=== PATIENT | male | born 1935 | race Caucasian/White ===

== ENCOUNTER 2017-03-07 09:40 | Outpatient (CLI) | payer MEDICARE, BC ==
--- NOTE | 2017-03-07 10:39 | RAD ---
TWO VIEWS LUMBAR SPINE: Date: 03-07-17 History: Low back pain. FINDINGS: T12 ribs appear hypoplastic. There are five non-rib bearing lumbar type vertebral bodies. There are post-surgical changes of the lumbar spine related to fusion with interbody fusion material at the L3 -4 and L4-5 levels. However, since prior study on 10-06-16, there have been interval post-surgical ch anges related to posterior fusion with bipedicular screws and posterior rods transfixing the L4-5 le wei. Laminectomy defect is seen posteriorly at this level. Vertebral body heights are within normal limits. There is no fracture or subluxation. Minimal osteophytes are seen involving the upper lumbar spine. Vascular calcifications are seen in the abdominal and iliac arteries. There is right convex rotoscoliosis throughout the lumbar spine. Surgical clips overlie the right upper quadrant. IMPRESSION: 1. Interval post-surgical changes compared to prior study related to posterior fusion at the L4-5 le wei with bipedicular screws and posterior rods. 2. Fusion of the L3-4 and L4-5 as well as L5-S1 levels with interbody fusion material present. 3. Mild degenerative changes in the upper lumbar spine. 4. No acute fracture. 5. Vascular calcifications. POS: [facility]
== END 2017-03-07 09:41 | disposition home or self-care (01) ==
LOC: TBSIIMAG 09:40
PROVIDERS: ATTEND Neurological Surgery
DX: M54.5 Low back pain (principal); M47.896 Other spondylosis, lumbar region; M43.26 Fusion of spine, lumbar region
CPT/HCPCS: 72100

== ENCOUNTER 2017-05-16 15:39 | Outpatient (CLI) | payer MEDICARE, OTHER ==
--- NOTE | 2017-05-16 15:54 | RAD ---
CHEST TWO VIEWS: History: Chest pain. FINDINGS: The cardiac silhouette and pulmonary vasculature are unremarkable. Mediastinum is midline with a dual lead left subclavian cardiac electronic device. There is no confluent airspace consolidation, pneumo thorax or pleural fluid evident. IMPRESSION: Chronic type findings are stable. No active cardiopulmonary abnormalities are demonstrated. POS: [facility]
== END 2017-05-16 15:40 | disposition home or self-care (01) ==
LOC: SCSRAD 15:39
PROVIDERS: ATTEND Internal Medicine
DX: R07.9 Chest pain, unspecified (principal)
CPT/HCPCS: 71020

== ENCOUNTER 2017-06-22 14:08 | Outpatient (CLI) | payer MEDICARE, BC ==
--- NOTE | 2017-06-22 15:45 | CT ---
CT OF THE LUMBAR SPINE: Date: 06/22/17 COMPARISON: 10/06/16. HISTORY: Low back pain, trauma, prior surgery. TECHNIQUE: Serial axial CT imaging is obtained at 3 mm intervals from lower thoracic spine through lower sacrum without contrast. Coronal and sagittal reformatted imaging obtained. FINDINGS: Evaluation of the nonosseous structures is limited on noncontrast enhanced imaging. Cholecystectomy clips are noted. There is atherosclerotic calcification of the abdominal aorta and it s branches, not optimally assessed on this exam. Incompletely imaged sigmoid diverticulosis noted. There is no significant anterolisthesis or retrolisthesis noted. Intervertebral disc devices are noted at L3-4, L4-5, and L5-S1, as seen on the prior exam. New bilate ral L4 and L5 pedicle screws are present with vertically oriented interlocking rods. No evidence for hardware failure is noted. T12-L1: Evaluation for central canal and neural foraminal stenosis is limited on routine CT. T12-L1: No osseous cause of significant central canal or neural foraminal stenosis. L1-2: Mild bilateral facet hypertrophy. Mild disc bulge suspected. Probable mild central canal stenosis. No osseous cause of significant central canal or neural foraminal stenosis. L2-3: Moderate bilateral facet hypertrophy. Mild disc bulge suspected. At least mild to moderate bilateral neural foraminal stenosis and at least mild central canal stenosis suspected. L3-4: Bilateral facet hypertrophy present with no osseous cause of significant central canal or neural fora manny stenosis. L4-5: There is bilateral facet hypertrophy with probably mild bilateral neural foraminal stenosis. There is no osseous cause of significant central canal stenosis. L5-S1: Bilateral facet hypertrophy with probable mild bilateral neural foraminal stenosis. Laminectomy saldaña es are present at L4 and L5. No acute fracture or dislocation. No worrisome lytic or blastic bone les ion. IMPRESSION: Postoperative and degenerative changes noted within the lumbar spine as detailed above. There is no e vidence for hardware failure, fracture, or dislocation. If further assessment for underlying central canal and/or neural foraminal stenosis is clinically warranted, lumbar spine CT myelogram advised. POS: [facility]
== END 2017-06-22 14:09 | disposition home or self-care (01) ==
LOC: TBSIIMAG 14:08
PROVIDERS: ATTEND Neurological Surgery
DX: M54.5 Low back pain (principal); Z98.1 Arthrodesis status; M47.896 Other spondylosis, lumbar region
CPT/HCPCS: 72131

== ENCOUNTER 2018-12-06 15:00 | Outpatient (CLI) | payer MEDICARE, BC ==
--- NOTE | 2018-12-06 16:25 | CT ---
CT LEFT SHOULDER WITHOUT CONTRAST: 12/06/18 HISTORY: Acute pain left shoulder. COMPARISON: None. FINDINGS: Rotator cuff evaluation is limited without intra-articular contrast. No biceps tendon is appreciated. Likely ruptured. LABRUM: Limited without intra-articular contrast although the superior labral tear is highly suspected. ROTATOR CUFF: Full thickness, full width supraspinatus and infraspinatus tendon tears. Also high grade likely full thickness tear of the subscapularis. MUSCLES: Greater than 50% atrophy of the supraspinatus, infraspinatus and subscapularis muscles. BONES: No fracture or malalignment. IMPRESSION: 1. Likely full thickness, full width supraspinatus and infraspinatus and subscapularis tendon te ars with greater than 50% muscle atrophy. 2. Rupture of the intra-articular and extra-articular biceps tendon is suspected. 3. Likely high grade tearing of the superior labrum. 4. Abnormal articulation with the humeral head with the undersurface of the acromion. POS: [facility]
== END 2018-12-06 15:01 | disposition home or self-care (01) ==
LOC: SCSCT 15:00
PROVIDERS: ATTEND Family Medicine
DX: M25.512 Pain in left shoulder (principal); M75.102 Unspecified rotator cuff tear or rupture of left shoulder, not specified as traumatic; S46.812A Strain of other muscles, fascia and tendons at shoulder and upper arm level, left arm, initial encounter; M89.9 Disorder of bone, unspecified

== ENCOUNTER 2018-12-26 11:15 | Inpatient (IN) | payer MEDICARE, BC ==
[2018-12-27] MEDS ORDERED: ceFAZolin Sodium (SDC) 2 GM/100 ML BAG ONE (06:22)
[2018-12-27] MEDS ORDERED: Midazolam HCl 5 mg/5 ml Vial ONE (06:31)
[2018-12-27] MEDS ORDERED: Fentanyl 250 MCG/5 ML VIAL ONE (06:31)
[2018-12-27] MEDS ORDERED: Phenylephrine HCL 10 MG/ML VIAL ONE (06:31)
[2018-12-27] MEDS ORDERED: Albumin 5% 500 ML ONE (06:33)
[2018-12-27] MEDS ORDERED: Heparin 10,000 UNITS/1 ML VIAL 30,000 UNITS in Sodium Chloride 0.9% 1,000 ML FS SCH (07:00)
[2018-12-27] MEDS ORDERED: Insulin Regular 300 UNITS/3 ML VIAL ONE (07:11)
[2018-12-27] MEDS ORDERED: Dexamethasone 4 mg/ml Vial ONE (08:24)
[2018-12-27] MEDS ORDERED: Bupivacaine HCl 0.5%/Epinephrine 1:200,000/PF 30 ml Vial ONE (08:24)
[2018-12-27] MEDS ORDERED: Amiodarone 150 MG/3 ML VIAL ONE (09:47)
[2018-12-27] MEDS ORDERED: Mag-Al 1200 mg/1200 mg/30 ML UDCUP PO PRN (11:07)
[2018-12-27] MEDS ORDERED: Promethazine HCl 25 MG/ML VIAL IM PRN (11:07)
[2018-12-27] MEDS ORDERED: Bisacodyl 10 MG SUPP PR PRN (11:07)
[2018-12-27] MEDS ORDERED: hydrALAZINE 20 MG/ML VIAL SLOW IVP PRN (11:07)
[2018-12-27] MEDS ORDERED: Nitroglycerin 50 MG/250 ML BOT 250 ML IVPB PRN (11:07)
[2018-12-27] MEDS ORDERED: Magnesium 2 GM/50 ML 2 GM in Premix Bag 1 BAG IVPB SCH (11:07)
[2018-12-27] MEDS ORDERED: Bisacodyl 5 MG TAB PO PRN (11:07)
[2018-12-27] MEDS ORDERED: Hetastarch 6% 500 ML 500 ML IVPB PRN (11:07)
[2018-12-27] MEDS ORDERED: Fentanyl 100 MCG/2 ML VIAL SLOW IVP PRN (11:07)
[2018-12-27] MEDS ORDERED: Guaifenesin DM 100-10/5 ML UDCUP PO PRN (11:07)
[2018-12-27] MEDS ORDERED: DOPamine 400 MG/D5W 250 ML 250 ML IVPB PRN (11:07)
[2018-12-27] MEDS ORDERED: Amiodarone 450 MG in Dextrose 5% in Water 250 ML IVPB SCH (11:07)
[2018-12-27] MEDS ORDERED: Dextrose 50% Abboject 50 ML SYRINGE SLOW IVP PRN (11:13)
[2018-12-27] MEDS ORDERED: D5 1/2 NS w/20 mEq KCL 1,000 ML ONE (11:13)
[2018-12-27] MEDS ORDERED: Dextrose 5% in Water 1,000 ML IV PRN (11:13)
[2018-12-27 11:16] LABS: #Basophils 0.2 thou/uL (0.0-0.2); #Eosinphils 0.1 thou/uL (0.0-0.7); #Lymphocytes 1.6 thou/uL (1.20-3.40); #Monocytes 0.8 thou/uL (0.11-0.59); #Neutrophils 9.7 thou/uL (1.40-6.50); %Basophils 1.3 % (0.0-1.0); %Eosinophils 0.6 % (0.0-10.0); %Lymphocytes 12.7 % (21.0-51.0); %Monocytes 6.1 % (0.0-10.0); %Neutrophils 79.3 % (42.0-75.0); Hemoglobin 10.8 g/dL (14.0-18.0); Mean Corpuscular HGB CONC 33.2 g/dL (32.0-36.0); Mean Corpuscular Hemoglobin 32.4 pg (27.0-31.0); Mean Corpuscular Volume 97.6 fL (78.0-98.0); Mean Platelet Volume 10.5 fL (7.4-10.4); Platelet Count 146 thou/uL (130-400); Red Blood Cell (RBC) Count 3.33 mill/uL (4.70-6.10); White Blood Cell (WBC) Count 12.2 thou/uL (4.8-10.8)
[2018-12-27 11:18] LABS: Base Excess (BEa) -6.6 mEq/L (-2.0 to +3.0); CO2 Tension 32.6 mmHg (35.0-45.0); Calcium, Ionized 1.06 mmol/L (1.12-1.30); Carboxyhemoglobin (COHb) 0.5 gm% (0.0-3.0); Hemoglobin (Hb) 11.3 g/dL (14.0-18.0); O2 Tension (PaO2) 97.1 mmHg (> 60.0); pH, Arterial 7.36 (7.35-7.45)
[2018-12-27] MEDS ORDERED: Norepinephrine 4 MG/4 ML VIAL ONE (11:18)
[2018-12-27 11:21] LABS: PTT 31.6 SEC (22.9-36.1)
--- NOTE | 2018-12-27 11:21 | RAD ---
XR Chest 1 View Portable History: Post open heart surgery Comparison: Radiograph prior day Findings: Right subclavian central venous catheter tip sits at the right atrium. The pacer is similar . Endotracheal tube tip rests just below the clavicles. Small left effusion. Left thoracostomy drain is present. No pneumothorax. Multiple midline sternotomy wires. Impression: Expected postoperative findings without complication.
[2018-12-27 11:22] LABS: INR-International Normal Ratio 1.3; Prothrombin Time 15.7 SEC (12.0-14.7)
[2018-12-27 11:25] LABS: Puncture Site ALINE
--- NOTE | 2018-12-27 11:25 | OP ---
DATE OF PROCEDURE: 12/27/2018 PREOPERATIVE DIAGNOSES: Coronary artery disease/hypertension/dyslipidemia. POSTOPERATIVE DIAGNOSIS: Coronary artery disease/hypertension/dyslipidemia. PROCEDURE PERFORMED: 1. Off pump coronary artery bypass grafting x2-left internal mammary artery to 1.0 mm left anterior descending at the apex. Note, the left anterior descending artery was intramyocardial all the way to the apex where it became visible and was small. The mammary was a good quality mammary with a small distal target. 2. Reverse saphenous vein to diagonal-good conduit and target [employer] SURGEON: Raymundo Monte MD. ANESTHESIA: General endotracheal-Dr. Hammad Sigala. DRAINS: 24-Estonian chest tube x2. DRIPS: None. TRANSFUSIONS: None. DESCRIPTION OF PROCEDURE: After operative consent was obtained, the patient was brought to the operating room, placed in supine position on the operating room table. Appropriate central line was placed and general endotracheal anesthesia was induced. Chest and legs were prepped and draped in usual sterile fashion. Greater saphenous vein was harvested through two skip incisions from the left lower thigh. Wounds were irrigated and closed in layers. Median sternotomy was performed. Left internal mammary artery was harvested as a pedicle graft. The patient was systemically heparinized. Distal pedicle was divided and infused with papaverine. Thymic fat and pericardium were divided with electrocautery. Pericardial stay sutures were placed. Heart was positioned for diagonal bypass with Octopus retractor. Proximal control was obtained with vessel loop. Saphenous vein was anastomosed to the diagonal in an end-to-side fashion with a running 7-0 Prolene suture. Anastomosis was tested and was hemostatic. The graft backfilled nicely. Mammary artery was brought through pericardium. The heart was then positioned for the LAD bypass at the apex. Mammary artery was anastomosed at the LAD with running 7-0 Prolene suture. On release of the the mammary clamp, there wsa good hooding of the anastomosis, and good distal flow. Pedicle was secured with interrupted 6-0 Prolene suture. Heart was dropped back in pericardial well. Blood pressure was dropped down into the 80s. The aorta was palpated and there was anterior plaque, where we would normally have done his proximal anastomosis. We moved more distally towards the arch for the proximal anastomosis and found a soft spot. Partial occluding clamp was placed , and saphenous vein anastomosed to a punch site in the aorta. On opening the aorta, there was significant soft and hard plaque within the aorta, which was irrigated and suctioned clear prior to the anastomosis. On release of the proximal clamp, there was good flow through the graft. Both grafts were interrogated with Doppler, which showed good flow. Protamine was administered. 24-Estonian chest tubes were placed in the mediastinum x2. After adequate hemostasis had been obtained, the sternum was closed with #7 wire. Sternum was treated with vancomycin paste and platelet rich plasma and wires twisted. Wound was irrigated with platelet rich plasma and closed in multiple layers. Needle, sponge, and instrument counts were all reported as correct at the end of the procedure. The patient tolerated the procedure well, was transferred to the intensive care unit in stable condition. Job ID: [id number] [facility]
[2018-12-27] MEDS ORDERED: Norepinephrine 8 MG in Dextrose 5% in Water 242 ML IVPB SCH (11:30)
[2018-12-27 11:33] LABS: Anion Gap 13 mmol/L (10-20); BUN (Urea Nitrogen) 19 mg/dL (8.4-25.7); Calc. Creatinine Clearance 50 mL/min (70-130); Calcium 7.9 mg/dL (7.8-10.44); Carbon Dioxide 19 mmol/L (23-31); Chloride 108 mmol/L (98-107); Estimated GFR-MDRD 67; Glucose 162 mg/dL (83-110); Potassium 4.1 mmol/L (3.5-5.1); Sodium 136 mmol/L (136-145)
[2018-12-27] MEDS ORDERED: Morphine 2 MG/ML SYRINGE SLOW IVP PRN (11:38)
[2018-12-27] MEDS: Ketorolac Tromethamine 30 MG/ML VIAL IVP SCH ×2 (11:42→18:04)
[2018-12-27] MEDS: D5 1/2 NS w/20 mEq KCL 1,000 ML IV SCH (11:44)
[2018-12-27] MEDS: Ondansetron PF 4 MG/2 ML Vial IVP PRN ×2 (11:57→20:23)
[2018-12-27] MEDS ORDERED: Norepinephrine 8 MG, Admixture Fee 1 EACH in Dextrose 5% in Water 242 ML IVPB SCH (12:00)
[2018-12-27] MEDS: HumaLOG 300 UNITS/3 ML VIAL SC PRN ×2 (12:14→22:55)
[2018-12-27] MEDS: CEFAZOLIN 2 GM, Admixture Fee 1 EACH in Sodium Chloride 0.9% 100 ML IVPB SCH ×2 (14:10→22:55)
[2018-12-27 14:50] LABS: Actual Bicarbonate (HCO3a) 13.3 mEq/L (22-28); Base Excess (BEa) -8.5 mEq/L (-2.0 to +3.0); Calcium, Ionized 1.04 mmol/L (1.12-1.30); Carboxyhemoglobin (COHb) 0.3 gm% (0.0-3.0); pH, Arterial 7.46 (7.35-7.45)
[2018-12-27] MEDS ORDERED: CEFAZOLIN 2 GM in Premix Bag 1 BAG IVPB SCH (15:00)
[2018-12-27] MEDS ORDERED: Protamine Sulfate 250 MG/25 ML VIAL ONE (15:40)
[2018-12-27] MEDS ORDERED: PHENYLEPHRINE-NS 100 MCG/ML 10 ML SYRINGE ONE (15:40)
[2018-12-27] MEDS ORDERED: Rocuronium Bromide 10 MG/ML (10ML VIAL) ONE (15:40)
[2018-12-27] MEDS ORDERED: Thrombin 5000 UNITS/5 ML VIAL ONE (15:40)
[2018-12-27] MEDS ORDERED: PROPOFOL 200 MG/20 ML VIAL ONE (15:40)
[2018-12-27] MEDS ORDERED: Heparin 5,000 UNITS/ML VIAL ONE (15:40)
[2018-12-27] MEDS ORDERED: Nitroglycerin 50 MG/250 ML BOT ONE (15:40)
[2018-12-27] MEDS ORDERED: Calcium Chloride 1 GM/10 ML Abboject SYRINGE ONE (15:40)
[2018-12-27] MEDS ORDERED: Papaverine 60 MG/2 ML VIAL ONE (15:40)
[2018-12-27] MEDS ORDERED: Aminocaproic Acid 5 GM/20 ML VIAL ONE (15:40)
[2018-12-27] MEDS ORDERED: Hydrocortisone Sod Succ/PF 100 mg/2 ml Vial ONE (15:40)
[2018-12-27 16:25] LABS: Hemoglobin 10.8 g/dL (14.0-18.0)
[2018-12-27] MEDS: Fentanyl 100 MCG/2 ML VIAL SLOW IVP PRN (16:41)
[2018-12-27 16:55] LABS: Potassium 4.7 mmol/L (3.5-5.1)
[2018-12-27 16:59] LABS: CO2 Tension 19.2 mmHg (35.0-45.0)
[2018-12-27 17:00] LABS: Puncture Site ALINE
[2018-12-27] MEDS: HYDROcodone/Acetaminophen 5/325 mg Tablet PO PRN (20:23)
[2018-12-27] MEDS: Famotidine/PF 20 mg/2ml Vial SLOW IVP SCH (20:23)
[2018-12-27] MEDS: Norepinephrine 8 MG, Admixture Fee 1 EACH in Dextrose 5% in Water 242 ML IVPB SCH (22:18)
[2018-12-28] MEDS: Ketorolac Tromethamine 30 MG/ML VIAL IVP SCH ×5 (00:55→17:54)
[2018-12-28] MEDS: Ondansetron PF 4 MG/2 ML Vial IVP PRN ×3 (02:14→21:44)
[2018-12-28] MEDS: HumaLOG 300 UNITS/3 ML VIAL SC PRN (05:01)
[2018-12-28 05:45] LABS: Anion Gap 12 mmol/L (10-20); BUN (Urea Nitrogen) 27 mg/dL (8.4-25.7); Calc. Creatinine Clearance 37 mL/min (70-130); Carbon Dioxide 18 mmol/L (23-31); Chloride 105 mmol/L (98-107); Estimated GFR-MDRD 44; Glucose 160 mg/dL (83-110); Potassium 5.3 mmol/L (3.5-5.1); Sodium 130 mmol/L (136-145)
[2018-12-28 05:50] LABS: Band 6 % (5-11); Hemoglobin 10.8 g/dL (14.0-18.0); Hypochromia SLIGHT = 6-15 cells (100X) (0-5/hpf); Lymphocytes 9 % (21-51); MDiff Complete? YES; Mean Corpuscular HGB CONC 32.5 g/dL (32.0-36.0); Mean Corpuscular Hemoglobin 32.7 pg (27.0-31.0); Mean Platelet Volume 11.2 fL (7.4-10.4); Monocytes 4 % (0-10); Neutrophil 81 % (42-75); Platelet Count 161 thou/uL (130-400); Platelet Morphology Comment Appears Adequate; RBC Distribution Width 12.3 % (11.5-14.5)
[2018-12-28] MEDS ORDERED: PROVENTIL INHALER 6.7 G (200 INHALATIONS) INH PRN (06:30)
[2018-12-28] MEDS: CEFAZOLIN 2 GM, Admixture Fee 1 EACH in Sodium Chloride 0.9% 100 ML IVPB SCH (07:36)
--- NOTE | 2018-12-28 08:40 | RAD ---
CHEST 1 VIEW: Date: 12/28/18 HISTORY: Heart surgery. Follow-up. COMPARISON: 12/27/18. FINDINGS: Cardiac silhouette is magnified and enlarged. Pulmonary vasculature unremarkable. Mediastinum is midl ine with postoperative changes. Endotracheal catheter no longer visible. Other lines and drains appea r unchanged in position. No evidence of pneumothorax. Gaseous distention of the stomach partially vis ualized. IMPRESSION: 1. Interval extubation. 2. Mild gaseous distention of the stomach. 3. Otherwise stable postoperative appearance of the chest. POS: [facility]
[2018-12-28] MEDS: Aspirin Chewable 81 MG TAB PO SCH (09:00)
[2018-12-28] MEDS: Famotidine/PF 20 mg/2ml Vial SLOW IVP SCH (09:00)
[2018-12-28] MEDS: Lactinex Tablet PO SCH (09:00)
[2018-12-28] MEDS: predniSONE 5 MG TAB PO SCH (09:00)
[2018-12-28] MEDS: Magnesium 2 GM/50 ML 2 GM in Premix Bag 1 BAG IVPB SCH (09:09)
[2018-12-28] MEDS: Flecainide 50 MG TAB PO SCH ×3 (09:28→21:44)
[2018-12-28] MEDS: D5 1/2 NS w/20 mEq KCL 1,000 ML IV SCH (11:35)
[2018-12-28] MEDS ORDERED: Prevnar 13-Val Conj/PF 0.5 ML SYRINGE IM ONE (12:30)
[2018-12-28] MEDS: Fentanyl 100 MCG/2 ML VIAL SLOW IVP PRN ×2 (12:54→19:44)
[2018-12-28] MEDS: Norepinephrine 8 MG, Admixture Fee 1 EACH in Dextrose 5% in Water 242 ML IVPB SCH (15:38)
[2018-12-28] MEDS: Atorvastatin Calcium 20 MG TAB PO SCH (21:44)
[2018-12-29] MEDS: Ketorolac Tromethamine 30 MG/ML VIAL IVP SCH ×3 (00:15→12:38)
[2018-12-29 04:25] LABS: #Eosinphils 0.1 thou/uL (0.0-0.7); #Lymphocytes 1.9 thou/uL (1.20-3.40); #Monocytes 2.6 thou/uL (0.11-0.59); #Neutrophils 13.3 thou/uL (1.40-6.50); %Eosinophils 0.4 % (0.0-10.0); %Lymphocytes 10.8 % (21.0-51.0); %Monocytes 14.8 % (0.0-10.0); %Neutrophils 73.9 % (42.0-75.0); Hemoglobin 11.2 g/dL (14.0-18.0); Mean Corpuscular Hemoglobin 33.4 pg (27.0-31.0); Mean Platelet Volume 12.1 fL (7.4-10.4); Platelet Count 146 thou/uL (130-400); RBC Distribution Width 12.5 % (11.5-14.5); Red Blood Cell (RBC) Count 3.34 mill/uL (4.70-6.10); White Blood Cell (WBC) Count 17.9 thou/uL (4.8-10.8)
[2018-12-29] MEDS: Ondansetron PF 4 MG/2 ML Vial IVP PRN (04:35)
[2018-12-29] MEDS: HYDROcodone/Acetaminophen 5/325 mg Tablet PO PRN ×2 (04:35→20:46)
[2018-12-29 05:26] LABS: Chloride 105 mmol/L (98-107); Potassium 5.7 mmol/L (3.5-5.1)
[2018-12-29 05:27] LABS: Calcium 7.7 mg/dL (7.8-10.44); Glucose 118 mg/dL (83-110)
[2018-12-29 05:29] LABS: Anion Gap 16 mmol/L (10-20); Carbon Dioxide 14 mmol/L (23-31)
[2018-12-29 05:31] LABS: BUN (Urea Nitrogen) 42 mg/dL (8.4-25.7); Calc. Creatinine Clearance 22 mL/min (70-130); Estimated GFR-MDRD 24
[2018-12-29 05:38] LABS: Sodium 129 mmol/L (136-145)
--- NOTE | 2018-12-29 07:57 | RAD ---
EXAM: Single view of the chest HISTORY: Status post open heart surgery COMPARISON: 12/28/2018 FINDINGS: Single view of the chest shows an enlarged but stable cardiomediastinal silhouette. The pa tient is status post sternotomy. The pacemaker and central venous catheter are unchanged in position. The left chest tube and mediastinal drain are stable. No pneumothorax is seen. There is a v eil like opacity in the right thorax which likely represents a small layering pleural effusion. IMPRESSION: Small right pleural effusion.
[2018-12-29] MEDS: Magnesium 2 GM/50 ML 2 GM in Premix Bag 1 BAG IVPB SCH (10:06)
[2018-12-29] MEDS: Lactinex Tablet PO SCH (10:07)
[2018-12-29] MEDS: Aspirin Chewable 81 MG TAB PO SCH (10:07)
[2018-12-29] MEDS: predniSONE 5 MG TAB PO SCH (10:07)
[2018-12-29] MEDS: Famotidine/PF 20 mg/2ml Vial SLOW IVP SCH (10:07)
[2018-12-29] MEDS: Flecainide 50 MG TAB PO SCH ×2 (10:11→20:40)
[2018-12-29] MEDS: D5 1/2 NS w/20 mEq KCL 1,000 ML IV SCH (11:15)
[2018-12-29] MEDS: Sodium Chloride 0.9% 1,000 ML IV SCH ×2 (14:00→22:05)
--- NOTE | 2018-12-29 15:18 | PDOC.CTH ---
Cardiology Progress Note - Subjective Remains on low dose levophed. Chest tubes still in place. Only complaint is chest soreness. - Objective Vital Signs Temp Pulse Ox 12/29/18 12:00 97 F L 12/29/18 08:00 97.9 F 92 L 12/29/18 05:00 98.1 F 12/29/18 04:00 97.5 F L Admit Weight 157 lb 13.616 oz Weight 160 lb 0.889 oz 12/28/18 12/29/18 12/30/18 06:59 06:59 06:59 Intake Total 2790 2178.8 300 Output Total 1210 760 260 Balance 1580 1418.8 40 - Physical Examination General/Neuro: alert & oriented x3 Neck: no JVD present Lungs: unlabored respirations Heart: RRR Abdomen: NT/ND Extremities: + edema B (1+) - Telemetry Telemetry Rhythm: NSR - Labs Result Diagrams: 12/29/18 03:33 12/29/18 03:33 - Assessment/Plan 1. Multivessel CAD. 2. S/P CABG x 2, off pump CULVER to distal LAD and SVg to Diagonal. 3. LAD intramyocardial until the apex. PLAN: - Continue to try to wean pressors. - ASA/Statin for life. - BB and ACEI/ARB once BP allows.
[2018-12-29 16:39] LABS: Anion Gap 15 mmol/L (10-20); BUN (Urea Nitrogen) 53 mg/dL (8.4-25.7); Calc. Creatinine Clearance 18 mL/min (70-130); Calcium 7.4 mg/dL (7.8-10.44); Carbon Dioxide 16 mmol/L (23-31); Chloride 103 mmol/L (98-107); Estimated GFR-MDRD 20; Glucose 131 mg/dL (83-110); Potassium 5.6 mmol/L (3.5-5.1); Sodium 128 mmol/L (136-145)
[2018-12-29] MEDS: Atorvastatin Calcium 20 MG TAB PO SCH (20:40)
[2018-12-30] MEDS: HYDROcodone/Acetaminophen 5/325 mg Tablet PO PRN ×2 (01:40→07:48)
[2018-12-30] MEDS: Sodium Chloride 0.9% 1,000 ML IV SCH ×3 (05:36→23:25)
[2018-12-30] MEDS: Norepinephrine 8 MG, Admixture Fee 1 EACH in Dextrose 5% in Water 242 ML IVPB SCH (05:51)
[2018-12-30 06:11] LABS: Band 16 % (5-11); Crenated RBC SLIGHT = 1-5 cells (100X) (None Seen); Elliptocytes SLIGHT = 2-5 cells (100X) (0-1/hpf); Hemoglobin 10.7 g/dL (14.0-18.0); Hypochromia SLIGHT = 6-15 cells (100X) (0-5/hpf); Lymphocytes 27 % (21-51); MDiff Complete? YES; Mean Corpuscular Hemoglobin 32.4 pg (27.0-31.0); Mean Platelet Volume 12.3 fL (7.4-10.4); Monocytes 4 % (0-10); Neutrophil 53 % (42-75); Platelet Count 120 thou/uL (130-400); Platelet Morphology Comment Appears Decreased; Polychromasia SLIGHT = 2-3 cells (100X) (0-2/hpf); RBC Distribution Width 12.5 % (11.5-14.5); White Blood Cell (WBC) Count 7.3 thou/uL (4.8-10.8)
[2018-12-30 06:16] LABS: Anion Gap 13 mmol/L (10-20); BUN (Urea Nitrogen) 52 mg/dL (8.4-25.7); Calc. Creatinine Clearance 27 mL/min (70-130); Calcium 7.3 mg/dL (7.8-10.44); Carbon Dioxide 16 mmol/L (23-31); Chloride 104 mmol/L (98-107); Estimated GFR-MDRD 29; Glucose 125 mg/dL (83-110); Sodium 128 mmol/L (136-145)
[2018-12-30] MEDS ORDERED: Furosemide 40 MG/4 ML VIAL SLOW IVP SCH (08:30)
--- NOTE | 2018-12-30 08:50 | RAD ---
PORTABLE AP CHEST XRAY: HISTORY: Post open heart surgery. COMPARISON: 12/29/2018. FINDINGS: Dual-lead left subclavian cardiac pacemaking device and right subclavian central venous catheter pb in in place and unchanged in position. Median sternotomy wires are again seen. Cardiac silhouette remains enlarged. There is an increased in right pleural effusion compared to wilfred or study. The left-sided thoracostomy tube has been removed. There increased density seen in the le ft mid lung zone which may be related to volume loss and has had a prior thoracostomy tube placement. Mediastinal drain is also not visualized on this exam. There is a linear gas density overlying the lateral left chest and left axillary region which may be related to subcutaneous emphysema. No othe r interval change. IMPRESSION: 1. Increasing right pleural effusion. 2. Cardiomegaly. 3. Interval removal of the mediastinal drain and left-sided thoracostomy tube with patchy density no w seen in the left mid lung zone which may be related to volume loss at the site of prior thoracostom y tube. Followup evaluation is recommended as a focal area of pneumonitis could not be entirely excl uded. 4. Linear gas density overlying the left mid chest and left axillary region which suggests subcutane ous emphysema. POS: [facility]
[2018-12-30] MEDS: Aspirin Chewable 81 MG TAB PO SCH (09:03)
[2018-12-30] MEDS: predniSONE 5 MG TAB PO SCH (09:03)
[2018-12-30] MEDS: Famotidine/PF 20 mg/2ml Vial SLOW IVP SCH (09:03)
[2018-12-30] MEDS: Lactinex Tablet PO SCH (09:03)
[2018-12-30] MEDS: Flecainide 50 MG TAB PO SCH ×2 (09:03→20:30)
--- NOTE | 2018-12-30 11:36 | CON ---
DATE OF CONSULTATION: 12/30/2018 CONSULTING PHYSICIAN: Dr. Moss via the Nursing Service. REASON FOR CONSULTATION: Medical management. HISTORY OF PRESENT ILLNESS: The patient is an 83-year-old male, who underwent coronary artery bypass grafting surgery on 12/27/2018. He has remained in the ICU with some degree of renal impairment and is currently on a Levophed drip to help perfusion. He is still having problems with diffuse pain throughout. PAST MEDICAL HISTORY: 1. Cardiomyopathy with EF of 40%. 2. Coronary artery disease. 3. 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 4. Hypertension. 5. Bradycardia with Mobitz second-degree AV block. 6. Pacemaker placement. 7. Left carotid endarterectomy. FAMILY MEDICAL HISTORY: Unknown. MEDICATIONS: Prior to admission; 1. Pravastatin 80 mg daily. 2. Flecainide 50 mg daily. 3. Eliquis 5 mg b.i.d. 4. Metoprolol 25 mg daily. 5. Ambien 5 mg nightly. 6. Magnesium 500 mg daily. 7. Multivitamin one daily. 8. Prednisone unknown dose daily. 9. Probiotic daily. Current inpatient medications; 1. Aspirin 81 mg daily. 2. Lipitor 20 mg daily. 3. Pepcid 20 mg daily. 4. Flecainide 50 mg b.i.d. 5. Levophed drip. 6. Prednisone 5 mg every morning. ALLERGIES: ROBYN INHIBITORS, SULFA DRUGS, ADHESIVE TAPE, AND BEE VENOM. REVIEW OF SYSTEMS: Otherwise, negative. PHYSICAL EXAMINATION: VITAL SIGNS: Temperature 98, pulse 70, respirations 22, blood pressure 143/52, and O2 saturation 94%. GENERAL: He is awake, alert, in obvious pain, but no acute respiratory distress. HEENT: Unremarkable. NECK: No adenopathy or JVD. LUNGS: Somewhat diminished breath sounds in the bases. CARDIAC: S1 and S2. Regular. ABDOMEN: Soft and nontender. EXTREMITIES: No clubbing, cyanosis, or edema. LABORATORY DATA: Sodium 128, potassium 5, chloride 104, CO2 of 16, BUN 52, creatinine 2.2, and glucose 125. White blood cell count 7.3, hematocrit 32.3, and platelet count 120. IMAGING DATA: Chest x-ray shows fairly marked pulmonary edema, worse on the right than the left. Probably some degree of effusion on the right. ASSESSMENT: 1. Status post coronary artery bypass grafting surgery. 2. Fluid overload. 3. Renal dysfunction, which is improved after hydration yesterday. 4. Hyponatremia. RECOMMENDATIONS: 1. I have gone ahead and gone down on his IV fluids. I have a feeling he probably needs to have a dose of diuretics. I will try to clear that with Dr. Phillips. 2. Otherwise, agree with medical management. We will follow with you. Job ID: [id number]
--- NOTE | 2018-12-30 15:57 | PRG ---
DATE OF SERVICE: 12/30/2018 SUBJECTIVE: Patient was seen and examined at bedside and overnight events noted. Patient denies any shortness of breath or chest pain or palpitation. No history of nausea or vomiting or diarrhea or fever or chills or cramps. OBJECTIVE: GENERAL: This is a well-built male, in no apparent distress. VITAL SIGNS: Temperature 97.8. Heart rate 73. Respiratory rate 22. Blood pressure 136/55. HEENT: Atraumatic, normocephalic. Oral mucosa is moist. NECK: Supple. CARDIOVASCULAR: S1, S2 heard. Rate and rhythm regular. RESPIRATORY: Clear to auscultation. GASTROINTESTINAL: Abdomen is soft. MUSCULOSKELETAL: No tenderness. No edema. DERMATOLOGIC: No skin rash. NEUROLOGIC: Alert and awake and oriented x3. No focal neurologic deficits. Moving all the extremities. PSYCHIATRIC: Mood and affect normal. LABORATORY DATA: Potassium 5.0, BUN is 52, and creatinine is 2.2. ASSESSMENT AND PLAN: 1. Acute kidney injury on chronic kidney disease, stage 3. Renal function getting better. I agree with reducing the IV fluids. 2. Hyponatremia. We will monitor. 3. Hyperkalemia, better. 4. Metabolic acidosis. 5. Edema, controlled. 6. Cardiorenal syndrome. We will monitor renal function, which is improving. Agree with reducing the IV fluids with close monitoring of cardiorespiratory status. We will follow. Job ID: [id number]
--- NOTE | 2018-12-30 16:27 | PDOC.CTH ---
Cardiology Progress Note - Subjective No new issues. Chest tubes are out and he is more comfortable. Still needing levophed low dose to maintain BP. - Objective Vital Signs Temp Pulse Ox 12/30/18 16:08 99 12/30/18 12:00 97.8 F 12/30/18 08:00 97.7 F 98 Admit Weight 157 lb 13.616 oz Weight 166 lb 3.657 oz 12/29/18 12/30/18 12/31/18 06:59 06:59 06:59 Intake Total 2178.8 3106.6 300 Output Total 760 713 750 Balance 1418.8 2393.6 -450 - Physical Examination General/Neuro: alert & oriented x3, NAD Neck: no JVD present Lungs: unlabored respirations Heart: RRR Abdomen: NT/ND Extremities: + edema B (1+) - Telemetry Telemetry Rhythm: NSR - Labs Result Diagrams: 12/30/18 05:35 12/30/18 05:35 - Assessment/Plan 1. Multivessel CAD. 2. S/P CABG x 2, off pump CULVER to distal LAD and SVg to Diagonal. 3. LAD intramyocardial until the apex. PLAN: - Continue to try to wean pressors. - ASA/Statin for life. - BB and ACEI/ARB once BP allows. - Start PT as tolerated once pressors weaned.
[2018-12-30] MEDS ORDERED: PROVENTIL INHALER 6.7 G (200 INHALATIONS) INH PRN (19:32)
[2018-12-30] MEDS: Atorvastatin Calcium 20 MG TAB PO SCH (20:30)
[2018-12-31 05:02] LABS: Anion Gap 13 mmol/L (10-20); BUN (Urea Nitrogen) 48 mg/dL (8.4-25.7); Calc. Creatinine Clearance 41 mL/min (70-130); Calcium 7.6 mg/dL (7.8-10.44); Carbon Dioxide 16 mmol/L (23-31); Chloride 105 mmol/L (98-107); Estimated GFR-MDRD 47; Glucose 103 mg/dL (83-110); Potassium 4.2 mmol/L (3.5-5.1); Sodium 130 mmol/L (136-145)
[2018-12-31 05:15] LABS: Band 44 % (5-11); Eosinophils 1 % (0-10); Hemoglobin 9.9 g/dL (14.0-18.0); Lymphocytes 20 % (21-51); MDiff Complete? YES; Mean Corpuscular HGB CONC 33.5 g/dL (32.0-36.0); Mean Corpuscular Volume 98.5 fL (78.0-98.0); Mean Platelet Volume 11.7 fL (7.4-10.4); Monocytes 21 % (0-10); Neutrophil 14 % (42-75); Platelet Count 138 thou/uL (130-400); Platelet Morphology Comment Appears Adequate; RBC Distribution Width 12.6 % (11.5-14.5); Red Blood Cell (RBC) Count 3.01 mill/uL (4.70-6.10); White Blood Cell (WBC) Count 6.5 thou/uL (4.8-10.8)
--- NOTE | 2018-12-31 08:06 | PRG ---
DATE OF SERVICE: 12/31/2018 SUBJECTIVE: The patient is still having difficulty breathing. He is about 8 pounds up on his weight over couple of days ago. He has been successfully weaned off the Levophed this morning. OBJECTIVE: VITAL SIGNS: Temperature 97.9, pulse 81, blood pressure 163/69. Intake for 24 hours 1908, output 1532. HEENT: Unremarkable. NECK: No adenopathy or JVD. LUNGS: Diminished breath sounds at both bases. CARDIAC: S1, S2. Regular. ABDOMEN: Soft. EXTREMITIES: Edematous. LABORATORY DATA: Sodium 130, BUN 48, creatinine 1.4, glucose 103, potassium 4.2. White blood cell count 6.5, hematocrit 29.6, and platelet count 138. ASSESSMENT: 1. Profound fluid overload, status post coronary artery bypass grafting surgery. 2. Resolved hypotension. 3. Hyponatremia, likely secondary to fluid overload. PLAN: We will go ahead and push diuretics today and stop the IV fluids. Hopefully, get up into a chair. Job ID: [id number]
[2018-12-31] MEDS ORDERED: Metolazone 5 MG TAB PO SCH (08:30)
[2018-12-31] MEDS: predniSONE 5 MG TAB PO SCH (08:53)
[2018-12-31] MEDS: Lactinex Tablet PO SCH (08:53)
[2018-12-31] MEDS: Flecainide 50 MG TAB PO SCH ×2 (08:53→20:58)
[2018-12-31] MEDS: Aspirin Chewable 81 MG TAB PO SCH (08:53)
[2018-12-31] MEDS: Famotidine/PF 20 mg/2ml Vial SLOW IVP SCH (08:54)
[2018-12-31] MEDS ORDERED: Furosemide 20 MG/2 ML VIAL IVP SCH (09:00)
--- NOTE | 2018-12-31 10:06 | RAD ---
SINGLE VIEW CHEST: HISTORY: Shortness of breath. COMPARISON: 12/30/2018 FINDINGS: A single view of the chest shows an enlarged but stable cardiomediastinal silhouette. The patient is status post sternotomy. The pacemaker is unchanged in position. The central venous catheter is unc hanged in position. There is a moderate right pleural effusion. IMPRESSION: Stable examination. POS: [facility]
--- NOTE | 2018-12-31 10:24 | CON ---
DATE OF CONSULTATION: 12/29/2018 CONSULTING PHYSICIAN: Dr. Phillips. REASON FOR CONSULTATION: Acute kidney injury. REASON FOR ADMISSION: CABG. HISTORY OF PRESENT ILLNESS: This is an 83-year-old white male with history of hypertension, bradycardia, coronary artery disease, peripheral neuropathy, hypertension, hyperlipidemia, came to the hospital for CABG and creatinine yesterday was 1.06 and post surgery is 2.5 with hyperkalemia. Nephrology was consulted. The patient was hypotensive and few episodes of vomiting yesterday, seen in ICU. He is extubated now with a complaint of some abdominal pain and chest tubes are being removed today. PAST MEDICAL HISTORY: Positive for hypertension, bradycardia, peripheral vascular disease, neuropathy, hypertension, and hyperlipidemia. PAST SURGICAL HISTORY: Cholecystectomy, carotid endarterectomy, and CABG. HOME MEDICATIONS: Include: 1. Metoprolol. 2. Probiotic. 3. Proventil. 4. Flecainide. 5. Eliquis. 6. Pravachol. 7. Magnesium. 8. Lisinopril. 9. Prednisone. 10. Ambien. ALLERGIES: SULFA, ROBYN INHIBITORS, ADHESIVE, AND BEE VENOM. 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 FAMILY HISTORY: No family history. REVIEW OF SYSTEMS: CONSTITUTIONAL: Negative for weight loss or gain, ability to conduct usual activities. SKIN: Negative for rash, itching. EYES: Negative for double vision, pain. ENT/MOUTH: Negative for nose bleeding, neck stiffness, pain, tenderness. CARDIOVASCULAR: Negative for palpitations, dyspnea on exertion, orthopnea. RESPIRATORY: Negative for shortness of breath, wheezing, cough, hemoptysis, fever or night sweats. GASTROINTESTINAL: Negative for poor appetite, abdominal pain, heartburn, nausea, vomiting, constipation, or diarrhea. GENITOURINARY: Negative for urgency, frequency, dysuria, nocturia. MUSCULOSKELETAL: Negative for pain, swelling. NEUROLOGIC/PSYCHIATRIC: Negative for anxiety, depression. ALLERGY/IMMUNOLOGIC: Negative for skin rash, bleeding tendency. PHYSICAL EXAMINATION: GENERAL: This is a well-built male, in no apparent distress. VITAL SIGNS: Temperature 97.0, pulse 89, respiratory rate 15, and blood pressure 144/80. HEENT: Atraumatic and normocephalic. Oral mucosa is moist. NECK: Supple. CV: S1 and S2. Regular rate and rhythm. RESPIRATORY: Clear to ausculation. MUSCULOSKELETAL: No tenderness. No edema. NEUROLOGIC: Alert and awake. PSYCHIATRIC: Mood and affect normal. LABORATORY DATA: Hemoglobin is 11.2. Potassium is 5.7, BUN is 42, and creatinine is 2.5. ASSESSMENT AND PLAN: 1. Acute kidney injury, most likely from ischemic injury possible early acute tubular necrosis. Continue IV fluids. Agree with increasing the pressors to keep blood pressure . 2. Hyponatremia. Agree with changing to NS. 3. Hyperkalemia. Stop potassium supplements and monitor. 4. Anemia. 5. Edema, controlled. 6. Hypertension. 7. No acute indication for dialysis. We will continue hydration and monitor labs closely and as tolerated, and we will closely monitor the labs. All the above plan discussed with the family, including the patient and this , voiced understand, and all the questions were answered. Thank you for the consult. We will follow. Job ID: [id number]
[2018-12-31] MEDS: HYDROcodone/Acetaminophen 5/325 mg Tablet PO PRN (13:06)
--- NOTE | 2018-12-31 18:11 | PRG ---
DATE OF SERVICE: 12/31/2018 SUBJECTIVE: Felix is doing better today, sitting up in the chair, breathing better. Urine output is also better. OBJECTIVE: VITAL SIGNS: His blood pressure is 120/60, pulse is 80. LUNGS: Clear. CARDIAC: Normal S1, normal S2. DIAGNOSTIC STUDIES: Echocardiogram, ejection fraction 50% to 55%. Very tip of the apex looks mildly hypokinetic, but the ejection fraction is normal. Mild to moderate mitral regurgitation. ASSESSMENT: 1. Status post bypass surgery, improving now. Did have some hypotension, apparently yesterday getting up. 2. Ejection fraction, 50% to 55%. PLAN: Continue current medical regimen. We will hold off on Coreg today in view of the hypotensive episode of yesterday. Job ID: [id number]
[2018-12-31] MEDS: Atorvastatin Calcium 20 MG TAB PO SCH (20:58)
[2018-12-31] MEDS: Furosemide 40 MG/4 ML VIAL IVP SCH (20:58)
[2019-01-01 04:28] LABS: Anion Gap 12 mmol/L (10-20); BUN (Urea Nitrogen) 40 mg/dL (8.4-25.7); Calc. Creatinine Clearance 52 mL/min (70-130); Calcium 7.9 mg/dL (7.8-10.44); Carbon Dioxide 23 mmol/L (23-31); Chloride 98 mmol/L (98-107); Estimated GFR-MDRD 61; Glucose 92 mg/dL (83-110); Potassium 3.6 mmol/L (3.5-5.1); Sodium 129 mmol/L (136-145)
[2019-01-01 04:37] LABS: Band 30 % (5-11); Hemoglobin 9.3 g/dL (14.0-18.0); Hypochromia SLIGHT = 6-15 cells (100X) (0-5/hpf); Lymphocytes 13 % (21-51); MDiff Complete? YES; Mean Corpuscular HGB CONC 34.8 g/dL (32.0-36.0); Mean Corpuscular Hemoglobin 33.9 pg (27.0-31.0); Mean Corpuscular Volume 97.6 fL (78.0-98.0); Mean Platelet Volume 10.9 fL (7.4-10.4); Monocytes 15 % (0-10); Neutrophil 42 % (42-75); Platelet Count 138 thou/uL (130-400); Platelet Morphology Comment Appears Adequate; RBC Distribution Width 12.6 % (11.5-14.5); Red Blood Cell (RBC) Count 2.74 mill/uL (4.70-6.10); White Blood Cell (WBC) Count 7.5 thou/uL (4.8-10.8)
[2019-01-01] MEDS ORDERED: Metolazone 5 MG TAB PO SCH (06:30)
[2019-01-01] MEDS: Potassium Chloride 20 MEQ/100 ML PREMIX BAG IVPB PRN (06:53)
[2019-01-01] MEDS: Ondansetron PF 4 MG/2 ML Vial IVP PRN (07:59)
[2019-01-01] MEDS: Aspirin Chewable 81 MG TAB PO SCH (07:59)
[2019-01-01] MEDS: Furosemide 40 MG/4 ML VIAL IVP SCH ×2 (07:59→20:48)
[2019-01-01] MEDS: Famotidine/PF 20 mg/2ml Vial SLOW IVP SCH (07:59)
[2019-01-01] MEDS: Potassium Chloride 20 MEQ TAB PO SCH ×2 (07:59→17:05)
[2019-01-01] MEDS: Acetaminophen 325 MG TAB PO PRN (07:59)
[2019-01-01] MEDS: predniSONE 5 MG TAB PO SCH (08:00)
[2019-01-01] MEDS: Lactinex Tablet PO SCH (08:00)
--- NOTE | 2019-01-01 08:02 | RAD ---
CHEST ONE VIEW: HISTORY: Dyspnea. Pulmonary edema. COMPARISON: 12/31/2018 FINDINGS: The cardiac silhouette is magnified by projection. The pulmonary vasculature are at the upper limits of normal. Right pleural fluid is similar in appearance to the previous exam. Mediastinum is midli ne with postoperative changes. Lines and tubes are unchanged in position. No evidence of pneumothor ax. IMPRESSION: Right pleural fluid and other findings are stable. POS: [facility]
[2019-01-01] MEDS: Benzonatate 100 MG CAP PO SCH ×3 (08:52→20:46)
--- NOTE | 2019-01-01 09:24 | PRG ---
DATE OF SERVICE: 01/01/2019 SUBJECTIVE: He is still struggling to breathe a little bit. OBJECTIVE: VITAL SIGNS: On exam, temperature 98.2, pulse 70, blood pressure 103/53, O2 saturation 99% on nasal cannula. HEENT: Unremarkable. NECK: No JVD. LUNGS: He has diminished breath sounds in the right base. CARDIAC: S1, S2. Regular. ABDOMEN: Soft. EXTREMITIES: No edema. LABORATORY DATA: White blood cell count 7.5, hematocrit 26.8, and platelet count 138. Sodium 129, potassium 3.6, BUN 40, creatinine 1.1, and glucose 92. Chest x-ray shows a fairly sizable right pleural effusion. ASSESSMENT: 1. Post coronary artery bypass grafting surgery. 2. Fluid overload. 3. Right pleural effusion. PLAN: Diagnostic and therapeutic right thoracentesis discussed with the patient. We will proceed later today. Job ID: [id number]
[2019-01-01] MEDS: Flecainide 50 MG TAB PO SCH ×2 (09:50→20:46)
--- NOTE | 2019-01-01 10:43 | OP ---
DATE OF PROCEDURE: 01/01/2019 PROCEDURE PERFORMED: Right thoracentesis. PREOPERATIVE DIAGNOSIS: Right pleural effusion. POSTOPERATIVE DIAGNOSIS: Right pleural effusion. ANESTHESIA: 1% lidocaine without epinephrine. DESCRIPTION OF PROCEDURE: Informed consent was obtained prior to the procedure, explaining the risks involved. The patient was placed in the sitting position. 1% lidocaine was used to anesthetize the entry site, which was approximately the 5th and 6th interspace at the midscapular line. After chlorhexidine prep was placed, the entry site was numbed. A Rlex-X-Bkshbovc catheter was placed in the pleural space as I was only able to get about 100 mL of pleural fluid at the initial site. I then brought an ultrasound and move the entry site approximately 3 cm to the right and 3 cm up and re-numbed, re-prepped and placed another Nmry-G-Vqsebaqt catheter and was able to drain about 800 mL of fluid in total. The patient tolerated the procedure well. Job ID: [id number]
[2019-01-01 11:34] LABS: Pleural Fluid, Protein 1.8 g/dL
--- NOTE | 2019-01-01 11:38 | RAD ---
EXAM: Single view of the chest HISTORY: Status post thoracocentesis COMPARISON: 01/01/2019 at 4:26 AM FINDINGS: Single view of the chest shows an enlarged but stable cardiomediastinal silhouette. The pa tient is status post sternotomy. The central venous catheter and pacemaker are unchanged in position. The previously seen right pleural effusion has been evacuated. No pneumothorax is seen. Th e bones are unremarkable. IMPRESSION: Status post right thoracocentesis without evidence of pneumothorax.
[2019-01-01] MEDS: HYDROcodone/Acetaminophen 5/325 mg Tablet PO PRN ×2 (11:46→20:46)
[2019-01-01 11:48] LABS: Body Fluid Source Thoracentesis Fluid
[2019-01-01 11:49] LABS: BF Color Pink; Clarity Cloudy/Turbid (Clear); RBC Background Count 0.002; RBC Count-Automated 16000 /cumm; Tube # 3
[2019-01-01 12:41] LABS: BF WBC/Nonhematics Ct. - Manua 23 /cumm
[2019-01-01 12:57] LABS: BF Segmented Neutrophils 32 %; Cell Count Non Hematic 32 %; Lymphocytes 36 %
--- NOTE | 2019-01-01 20:34 | PRG ---
DATE OF SERVICE: 01/01/2019 SUBJECTIVE: Mr. Washington is doing better today, less short of breath. OBJECTIVE: VITAL SIGNS: Blood pressure 107/68, pulse 80. LUNGS: Clear. CARDIAC: Normal S1, normal S2. ABDOMEN: Soft, nontender. EXTREMITIES: No edema. The patient did have 800 mL of pleural fluid removed from the right side. ASSESSMENT: 1. Status post bypass surgery. 2. Status post thoracentesis. 3. Paroxysmal atrial fibrillation. 4. Previous pacemaker. PLAN: Continue current medical regimen, tomorrow. Job ID: [id number]
[2019-01-01] MEDS: Atorvastatin Calcium 20 MG TAB PO SCH (20:48)
[2019-01-02 05:19] LABS: Anion Gap 10 mmol/L (10-20); BUN (Urea Nitrogen) 42 mg/dL (8.4-25.7); Calc. Creatinine Clearance 43 mL/min (70-130); Calcium 8.4 mg/dL (7.8-10.44); Carbon Dioxide 27 mmol/L (23-31); Chloride 95 mmol/L (98-107); Estimated GFR-MDRD 54; Glucose 87 mg/dL (83-110); Potassium 3.8 mmol/L (3.5-5.1); Sodium 128 mmol/L (136-145)
[2019-01-02] MEDS: Potassium Chloride 20 MEQ/100 ML PREMIX BAG IVPB PRN (05:54)
[2019-01-02] MEDS: Famotidine/PF 20 mg/2ml Vial SLOW IVP SCH (07:57)
[2019-01-02] MEDS: Potassium Chloride 20 MEQ TAB PO SCH ×2 (07:58→17:48)
[2019-01-02] MEDS: Aspirin Chewable 81 MG TAB PO SCH (07:58)
[2019-01-02] MEDS: Lactinex Tablet PO SCH (07:58)
[2019-01-02] MEDS: predniSONE 5 MG TAB PO SCH (07:58)
[2019-01-02] MEDS: Flecainide 50 MG TAB PO SCH ×2 (07:58→20:28)
[2019-01-02] MEDS: Benzonatate 100 MG CAP PO SCH ×3 (07:59→20:28)
[2019-01-02] MEDS: HYDROcodone/Acetaminophen 5/325 mg Tablet PO PRN (08:06)
--- NOTE | 2019-01-02 09:39 | PRG ---
DATE OF SERVICE: 01/02/2019 SUBJECTIVE: Mr. Washington is doing well. He did get up and try to walk to the doors. Blood pressure dropped from about 120 systolic to 100 systolic and he got lightheaded. He does have a history of orthostatic hypotension. OBJECTIVE: LUNGS: Clear. CARDIAC: Normal S1 and normal S2. ABDOMEN: Soft and nontender. EXTREMITIES: There is no edema. ASSESSMENT: 1. Status post bypass surgery. 2. Orthostatic hypotension, it is a long-term problem. 3. Atrial fibrillation, paroxysmal. PLAN: 1. Continue flecainide. 2. We will avoid ROBYN inhibitors due to the hypotension. 3. Ultimately, we can consider low-dose beta blockers once blood pressure improves. Job ID: [id number]
--- NOTE | 2019-01-02 10:59 | PRG ---
DATE OF SERVICE: 01/02/2019 SUBJECTIVE: Mr. Washington appears to be doing well. He is having some substernal chest pain in his incisional site. OBJECTIVE: VITAL SIGNS: Temperature is 98.3, pulse , blood pressure 114/65, O2 saturation is 90s on room air. HEENT: Unremarkable. NECK: No adenopathy or JVD. CHEST: Clear anteriorly bilaterally. CARDIAC: S1 and S2, regular. ABDOMEN: Soft LABORATORY DATA: , sodium 128, potassium 3.8, chloride 95, CO2 of 27, BUN 42, creatinine 1.2, and glucose 87. ASSESSMENT: 1. Post coronary artery bypass graft, starting to do better. 2. Fluid overload, which is resolving. 3. Right pleural effusion-evacuated yesterday by thoracentesis. PLAN: I expect that he will be transferred to the floor soon. Silviano yesterday. Might be able to hold that today as . my partners will follow for the rest of the week. Job ID: [id number]
[2019-01-02] MEDS: Atorvastatin Calcium 20 MG TAB PO SCH (20:28)
[2019-01-03] MEDS: HYDROcodone/Acetaminophen 5/325 mg Tablet PO PRN ×2 (05:35→20:54)
[2019-01-03 06:03] LABS: Anion Gap 13 mmol/L (10-20); BUN (Urea Nitrogen) 36 mg/dL (8.4-25.7); Calc. Creatinine Clearance 51 mL/min (70-130); Calcium 8.2 mg/dL (7.8-10.44); Carbon Dioxide 25 mmol/L (23-31); Chloride 92 mmol/L (98-107); Estimated GFR-MDRD 64; Glucose 90 mg/dL (83-110); Potassium 3.8 mmol/L (3.5-5.1); Sodium 126 mmol/L (136-145)
[2019-01-03] MEDS: Furosemide 40 MG TAB PO SCH (06:42)
[2019-01-03] MEDS: Potassium Chloride 20 MEQ/100 ML PREMIX BAG IVPB PRN (06:42)
--- NOTE | 2019-01-03 07:42 | RAD ---
XR Chest 1 View Portable History: CABG Comparison: Radiograph 2 days prior Findings: Heart size is enlarged. Small left effusion. Mild pulmonary venous congestion. Subclavian central venous catheter is similar. No pneumothorax. Left rotator cuff arthropathy. Impression: Similar examination of the chest.
[2019-01-03] MEDS: Lactinex Tablet PO SCH (09:15)
[2019-01-03] MEDS: Aspirin Chewable 81 MG TAB PO SCH (09:16)
[2019-01-03] MEDS: predniSONE 5 MG TAB PO SCH (09:16)
[2019-01-03] MEDS: Flecainide 50 MG TAB PO SCH ×2 (09:16→20:51)
[2019-01-03] MEDS: Benzonatate 100 MG CAP PO SCH ×3 (09:16→20:51)
[2019-01-03] MEDS: Potassium Chloride 20 MEQ TAB PO SCH ×2 (09:16→17:17)
[2019-01-03] MEDS ORDERED: Artificial Tears 18 DROP/0.9 ML EA EYE PRN (12:46)
[2019-01-03] MEDS ORDERED: Mineral Oil ENEMA PR PRN (12:46)
[2019-01-03] MEDS ORDERED: Nitroglycerin 0.4 MG TAB (25 Tab Bottle) SL PRN (12:46)
[2019-01-03] MEDS ORDERED: diphenhydrAMINE 25 MG CAP PO PRN (12:46)
[2019-01-03] MEDS ORDERED: Bisacodyl 10 MG SUPP PR PRN (12:46)
[2019-01-03] MEDS ORDERED: Guaifenesin DM 100-10/5 ML UDCUP PO PRN (12:46)
[2019-01-03] MEDS ORDERED: Milk Of Magnesia 30 ML UDCUP PO PRN (12:46)
[2019-01-03] MEDS ORDERED: Bisacodyl 5 MG TAB PO PRN (12:46)
[2019-01-03] MEDS ORDERED: Mag-Al 1200 mg/1200 mg/30 ML UDCUP PO PRN (12:46)
--- NOTE | 2019-01-03 17:16 | PRG ---
DATE OF SERVICE: 01/03/2019 SERVICE: Pulmonary Medicine. INTERVAL HISTORY: The patient is doing fine from respiratory standpoint. Breathing comfortably. Whenever he does a little bit of activity, he gets severely short of breath. He takes some couple of minutes to settle down, but he finally does. Otherwise, there has been no interval change to his condition. PHYSICAL EXAMINATION: VITAL SIGNS: Afebrile, pulse 77, blood pressure 102/55, respirations 20, and saturation 94% on room air. GENERAL: The patient is awake and alert, in no apparent distress. LUNGS: Decent air entry. Dependent crackles are minimal. There is no prolonged expiratory phase or wheezing. HEART: Normal rate, regular. ABDOMEN: Soft, nontender, and nondistended. Bowel sounds are positive. MUSCULOSKELETAL: No cyanosis or clubbing. There is no pitting in bilateral lower extremities. NEUROLOGIC: Nonfocal. LABORATORY DATA: WBC 7.5, hemoglobin 9.3, and platelets are 138,000. Band count is dropping to 30%. Sodium 126 and downtrending. Basic metabolic profile is otherwise unremarkable. Creatinine is improved to 1.09. Thoracentesis fluid has an LDH of 172, total protein of 1.8. A pH of 7.8. All cultures remain negative to-date. IMAGING STUDIES: Chest x-ray demonstrates similar findings of the chest. He has a small left-sided pleural effusion. There is no right-sided pleural effusion at this point. There is a right subclavian central venous catheter that terminates in good position. Sternotomy wires are in good position. A little bit of cephalization is present in the bilateral lung winsolw. ASSESSMENT: 1. Acute hypoxic respiratory failure. 2. Pleural effusion, bilateral, status post thoracentesis on the right. 3. Coronary artery disease, status post coronary artery bypass graft, postoperative day #7. DISCUSSION AND PLAN: We will continue to gently diurese the patient down to euvolemia as tolerated. The patient is being transitioned to the floor today. Mobilization efforts will be continued. Since he is still quite deconditioned and dyspneic, I will continue to follow. Job ID: [id number] [facility]
[2019-01-03] MEDS: Atorvastatin Calcium 20 MG TAB PO SCH (20:51)
[2019-01-03] MEDS: Zolpidem Tartrate 5 MG TAB PO PRN (23:29)
[2019-01-04 04:35] LABS: Phosphorus 3.9 mg/dL (2.3-4.7)
[2019-01-04 04:43] LABS: Anion Gap 12 mmol/L (10-20); BUN (Urea Nitrogen) 36 mg/dL (8.4-25.7); Calc. Creatinine Clearance 46 mL/min (70-130); Calcium 8.5 mg/dL (7.8-10.44); Carbon Dioxide 26 mmol/L (23-31); Chloride 91 mmol/L (98-107); Estimated GFR-MDRD 57; Glucose 93 mg/dL (83-110); Magnesium 1.9 mg/dL (1.6-2.6); Sodium 125 mmol/L (136-145)
[2019-01-04] MEDS: HYDROcodone/Acetaminophen 5/325 mg Tablet PO PRN ×2 (05:34→13:02)
[2019-01-04] MEDS: Lactinex Tablet PO SCH (09:43)
[2019-01-04] MEDS: Flecainide 50 MG TAB PO SCH ×2 (09:43→20:33)
[2019-01-04] MEDS: Aspirin Chewable 81 MG TAB PO SCH (09:43)
[2019-01-04] MEDS: predniSONE 5 MG TAB PO SCH (09:43)
[2019-01-04] MEDS: Benzonatate 100 MG CAP PO SCH ×3 (09:43→20:33)
[2019-01-04] MEDS: Potassium Chloride 20 MEQ TAB PO SCH ×2 (09:43→16:29)
--- NOTE | 2019-01-04 09:44 | PRG ---
DATE OF SERVICE: 01/04/2019 SUBJECTIVE: Mr. Washington is doing okay. He still has quite significant drops in blood pressure when he stands up. He gets short of breath too, it seems to be related to drops in blood pressure. OBJECTIVE: VITAL SIGNS: His blood pressure earlier was 130/60, but it drops to the 90s systolic, standing. LUNGS: Clear. CARDIAC: Normal S1 and normal S2. ASSESSMENT: 1. Status post bypass. 2. Orthostatic hypotension, it is a longstanding problem. It is worse currently. 3. Ventricular pacing, which also further reduces ejection fraction. 4. Paroxysmal atrial fibrillation. PLAN: 1. Stop diuretics. 2. Continue flecainide. 3. Need to consider anticoagulation soon. We will discuss with Dr. Moss. Job ID: [id number]
[2019-01-04] MEDS: Furosemide 40 MG TAB PO SCH (11:38)
--- NOTE | 2019-01-04 15:16 | PRG ---
DATE OF SERVICE: SERVICE: Pulmonary Medicine. INTERVAL HISTORY: The patient is doing fine from respiratory standpoint. When he gets up and walks about, he does not have any dyspnea that limits his activity. His biggest problem is that he cannot seem to get a feeling or satisfying breath. Otherwise, he did not have any fevers, cough, chest discomfort, sputum production, or fevers overnight. PHYSICAL EXAMINATION: VITAL SIGNS: Afebrile. Pulse 72, blood pressure 110/51, respirations 16, and saturation 95% on room air. GENERAL: The patient is awake and alert, in no apparent distress. LUNGS: Decent air entry. Dependent crackles are minimal. No prolonged expiratory phase or wheezing is appreciated. HEART: Normal rate. Regular. ABDOMEN: Soft, nontender, and nondistended. Bowel sounds are positive. MUSCULOSKELETAL: No cyanosis or clubbing. There is no pitting in bilateral lower extremities. NEUROLOGIC: Grossly nonfocal. LABORATORY DATA: Hemoglobin 9.0. INR 1.3. Sodium 125, creatinine 1.21. Basic metabolic profile is otherwise unremarkable. Magnesium 1.9. Pleural fluid is consistent with a very weak exudate. ASSESSMENT: 1. Acute hypoxic respiratory failure. 2. Pleural effusion, bilateral, status post right-sided thoracentesis demonstrating a week exudate. 3. Coronary artery disease, status post coronary artery bypass graft, postop day 8. 4. Hyponatremia. DISCUSSION AND PLAN: The patient is doing fairly well from respiratory standpoint. He describes not getting a satisfying breath, but when he walks around, he specifically denies having any dyspnea that limits his activity. At this point, he has no further requirements for inpatient Pulmonary or Critical Care opinion, and I will sign off. Please call with additional questions or concerns through time. Job ID: [id number]
[2019-01-04] MEDS: Atorvastatin Calcium 20 MG TAB PO SCH (20:33)
[2019-01-04] MEDS: Zolpidem Tartrate 5 MG TAB PO PRN (20:33)
[2019-01-05 05:59] LABS: Anion Gap 15 mmol/L (10-20); BUN (Urea Nitrogen) 31 mg/dL (8.4-25.7); Calc. Creatinine Clearance 56 mL/min (70-130); Calcium 8.2 mg/dL (7.8-10.44); Carbon Dioxide 24 mmol/L (23-31); Chloride 93 mmol/L (98-107); Estimated GFR-MDRD 71; Glucose 90 mg/dL (83-110); Potassium 3.9 mmol/L (3.5-5.1); Sodium 128 mmol/L (136-145)
[2019-01-05] MEDS: Enoxaparin Sodium 30 MG/0.3 ML SYRINGE SC SCH ×2 (09:29→20:15)
[2019-01-05] MEDS: Flecainide 50 MG TAB PO SCH ×2 (09:29→20:14)
[2019-01-05] MEDS: Aspirin Chewable 81 MG TAB PO SCH (09:29)
[2019-01-05] MEDS: Lactinex Tablet PO SCH (09:29)
[2019-01-05] MEDS: Potassium Chloride 20 MEQ TAB PO SCH ×2 (09:29→18:14)
[2019-01-05] MEDS: predniSONE 5 MG TAB PO SCH (09:29)
[2019-01-05] MEDS: Benzonatate 100 MG CAP PO SCH ×3 (09:29→20:14)
[2019-01-05] MEDS: HYDROcodone/Acetaminophen 5/325 mg Tablet PO PRN ×2 (09:33→14:07)
[2019-01-05] MEDS: Atorvastatin Calcium 20 MG TAB PO SCH (20:14)
[2019-01-05] MEDS: Zolpidem Tartrate 5 MG TAB PO PRN (20:14)
[2019-01-06] MEDS: HYDROcodone/Acetaminophen 5/325 mg Tablet PO PRN ×3 (04:36→23:51)
[2019-01-06 05:56] LABS: Anion Gap 12 mmol/L (10-20); BUN (Urea Nitrogen) 30 mg/dL (8.4-25.7); Calc. Creatinine Clearance 53 mL/min (70-130); Carbon Dioxide 25 mmol/L (23-31); Chloride 93 mmol/L (98-107); Estimated GFR-MDRD 67; Glucose 81 mg/dL (83-110); Potassium 3.8 mmol/L (3.5-5.1); Sodium 126 mmol/L (136-145)
[2019-01-06] MEDS: Lactinex Tablet PO SCH (08:24)
[2019-01-06] MEDS: Flecainide 50 MG TAB PO SCH ×2 (08:24→20:12)
[2019-01-06] MEDS: Benzonatate 100 MG CAP PO SCH ×3 (08:24→20:11)
[2019-01-06] MEDS: Potassium Chloride 20 MEQ TAB PO SCH ×2 (08:25→17:38)
[2019-01-06] MEDS: Aspirin Chewable 81 MG TAB PO SCH (08:25)
[2019-01-06] MEDS: Enoxaparin Sodium 30 MG/0.3 ML SYRINGE SC SCH ×2 (08:25→20:12)
[2019-01-06] MEDS: predniSONE 5 MG TAB PO SCH (08:26)
[2019-01-06] MEDS: Acetaminophen 325 MG TAB PO PRN (15:15)
[2019-01-06] MEDS ORDERED: HYDROcodone/Acetaminophen 5/325 mg Tablet PO PRN (17:02)
[2019-01-06] MEDS: Zolpidem Tartrate 5 MG TAB PO PRN (20:12)
[2019-01-06] MEDS: Atorvastatin Calcium 20 MG TAB PO SCH (20:12)
[2019-01-07 05:40] LABS: Anion Gap 12 mmol/L (10-20); BUN (Urea Nitrogen) 28 mg/dL (8.4-25.7); Calc. Creatinine Clearance 62 mL/min (70-130); Calcium 8.1 mg/dL (7.8-10.44); Carbon Dioxide 25 mmol/L (23-31); Chloride 96 mmol/L (98-107); Estimated GFR-MDRD 80; Glucose 91 mg/dL (83-110); Potassium 4.1 mmol/L (3.5-5.1); Sodium 129 mmol/L (136-145)
[2019-01-07] MEDS: HYDROcodone/Acetaminophen 5/325 mg Tablet PO PRN ×2 (05:42→10:07)
[2019-01-07] MEDS: Potassium Chloride 20 MEQ TAB PO SCH (08:32)
[2019-01-07] MEDS: Aspirin Chewable 81 MG TAB PO SCH (08:32)
[2019-01-07] MEDS: Lactinex Tablet PO SCH (08:32)
[2019-01-07] MEDS: predniSONE 5 MG TAB PO SCH (08:32)
[2019-01-07] MEDS: Benzonatate 100 MG CAP PO SCH (08:32)
[2019-01-07] MEDS: Flecainide 50 MG TAB PO SCH (08:32)
[2019-01-07] MEDS ORDERED: Apixaban 5 MG TAB PO SCH (09:00)
--- NOTE | 2019-01-07 10:08 | PRG ---
DATE OF SERVICE: 01/07/2019 SUBJECTIVE: Mr. Washington is doing better. He is up walking in the halls more. He is having some chest wall pain, but no anginal pain. OBJECTIVE: VITAL SIGNS: His blood pressure is 130 systolic, which is improved; pulse is 70. LUNGS: Clear. CARDIAC: Normal S1. Normal S2. ABDOMEN: Soft and nontender. ASSESSMENT: 1. Orthostatic hypotension, improved. 2. Status post bypass surgery. 3. Previous pacemaker with some decrease in ejection fraction after pacemaker placement. PLAN: 1. Continue rehab. 2. Ultimately need to consider upgrading to a biventricular device. 3. He is back on [employer]. Job ID: [id number]
[2019-01-07 13:48] LABS: Actual Bicarbonate (HCO3a) 22.9 mEq/L (22-28); Analyzer IN Cardio OR; Base Excess (BEa) -2.2 mEq/L (-2.0 to +3.0); CO2 Tension 40.7 mmHg (35.0-45.0); Carboxyhemoglobin (COHb) 0.1 gm% (0.0-3.0); Hemoglobin (Hb) 12.2 g/dL (14.0-18.0); Potassium - ABG Lab 4.51 mmol/L (3.70-5.30); pH, Arterial 7.37 (7.35-7.45)
[2019-01-07 13:48] LABS: Actual Bicarbonate (HCO3a) 21.7 mEq/L (22-28); Analyzer IN Cardio OR; Base Excess (BEa) -2.2 mEq/L (-2.0 to +3.0); CO2 Tension 34.3 mmHg (35.0-45.0); Calcium, Ionized 1.12 mmol/L (1.12-1.30); Carboxyhemoglobin (COHb) 0.6 gm% (0.0-3.0); Potassium - ABG Lab 4.28 mmol/L (3.70-5.30); pH, Arterial 7.42 (7.35-7.45)
[2019-01-07 13:49] LABS: Actual Bicarbonate (HCO3a) 19.7 mEq/L (22-28); Analyzer IN Cardio OR; Base Excess (BEa) -5.4 mEq/L (-2.0 to +3.0); CO2 Tension 36.8 mmHg (35.0-45.0); Calcium, Ionized 1.05 mmol/L (1.12-1.30); Carboxyhemoglobin (COHb) 0.2 gm% (0.0-3.0); Hemoglobin (Hb) 11.6 g/dL (14.0-18.0); O2 Tension (PaO2) 401.5 mmHg (> 60.0); Potassium - ABG Lab 4.68 mmol/L (3.70-5.30); pH, Arterial 7.35 (7.35-7.45)
[2019-01-07 14:13] VITALS: BMI 23.8
[2019-01-07 15:30] LABS: Puncture Site ALINE
[2019-01-07 15:30] LABS: Puncture Site ALINE
[2019-01-07 15:31] LABS: Puncture Site ALINE
[2019-01-07 15:35] VITALS: BP 140/63; TEMP 97.8
--- NOTE | 2019-01-08 01:10 | DIS ---
DATE OF ADMISSION: 12/27/2018 DATE OF DISCHARGE: 01/07/2019 DIAGNOSES: 1. Coronary artery disease. 2. History of chronic atrial fibrillation. 3. History of orthostatic hypotension. 4. Bradycardia, status post pacemaker placement. 5. Peripheral vascular disease, status post carotid endarterectomy. 6. Neuropathy. 7. Dyslipidemia. PROCEDURES PERFORMED: 1. Coronary artery bypass grafting utilizing an off-pump technique x2-one left internal mammary artery to LAD. 2. Reverse saphenous vein to diagonal. DESCRIPTION OF HOSPITAL STAY: Mr. Washington is an 83-year-old gentleman, who had presented with chest pain and CAT showing LAD diagonal bifurcation disease. He underwent coronary artery bypass grafting as above. Postoperatively, he was very weak and fluid overloaded. Echocardiogram showed an ejection fraction of approximately 50% with circumferential squeeze. He was diuresed as we were able with his labile blood pressures. He had a history of orthostasis and this has continued postoperatively. When he is up, he often times has to sit down due to low blood pressures. These always resolve just given enough time, but he has had difficulty with orthostasis. He has made significant progress while in the hospital with his ambulatory ability. Currently, he is able to get into the [place], walk to the nurse's station and back without stopping. He is going to rehab for further strengthening. Discharge MARs included with his transfer. Job ID: [id number]
== END 2019-01-07 15:30 | DRG 235 ==
LOC: SURG A 12-27 06:04 → CCU 12-27 11:02 → 2NO 01-03 16:12
PROVIDERS: ADMIT Thoracic Surgery (Cardiothoracic Vascular Surgery); ATTEND Thoracic Surgery (Cardiothoracic Vascular Surgery)
PROC: 02100Z9 Bypass Coronary Artery, One Artery from Left Internal Mammary, Open Approach (ICD-10-PCS; principal; 2018-12-27)
PROC: 021009W Bypass Coronary Artery, One Artery from Aorta with Autologous Venous Tissue, Open Approach (ICD-10-PCS; 2018-12-27)
PROC: 06BQ4ZZ Excision of Left Saphenous Vein, Percutaneous Endoscopic Approach (ICD-10-PCS; 2018-12-27)
PROC: 0W993ZZ Drainage of Right Pleural Cavity, Percutaneous Approach (ICD-10-PCS; 2019-01-01)
DX: I25.10 Atherosclerotic heart disease of native coronary artery without angina pectoris (principal); J96.01 Acute respiratory failure with hypoxia; N17.9 Acute kidney failure, unspecified; E87.1 Hypo-osmolality and hyponatremia; E87.2 Acidosis; J90 Pleural effusion, not elsewhere classified; E78.5 Hyperlipidemia, unspecified; G62.9 Polyneuropathy, unspecified; E87.5 Hyperkalemia; I73.9 Peripheral vascular disease, unspecified; D64.9 Anemia, unspecified; I48.0 Paroxysmal atrial fibrillation; I95.1 Orthostatic hypotension; I42.9 Cardiomyopathy, unspecified; N18.3 Chronic kidney disease, stage 3 (moderate); I12.9 Hypertensive chronic kidney disease with stage 1 through stage 4 chronic kidney disease, or unspecified chronic kidney disease; Z88.2 Allergy status to sulfonamides; Z91.048 Other nonmedicinal substance allergy status; Z79.01 Long term (current) use of anticoagulants; Z95.0 Presence of cardiac pacemaker; Z79.899 Other long term (current) drug therapy; Z87.891 Personal history of nicotine dependence; Z79.82 Long term (current) use of aspirin; Z79.52 Long term (current) use of systemic steroids
CPT/HCPCS: 36415; 36416; 36430; 71045; 71046; 80048; 82150; 82805; 82945; 83615; 83735; 83986; 84100; 84157; 84478; 85014; 85018; 85025; 85060; 85610; 85730; 86850; 86900; 86901; 87070; 87116; 87205; 87206; 88112; 88305; 89051; 93005; 93010; 93306; 93798; 94002; 94150; 94640; 94660; J0282; J0360; J0670; J0690; J1100; J1642; J1644; J1650; J1720; J1815; J1885; J1940; J2250; J2270; J2370; J2405; J2440; J2550; J2704; J2720; J3010; J3370; J3475; J3480; J3490; J7050; J7070; J7512; J7620; P9045; S0017; S0028

== ENCOUNTER 2019-01-29 12:33 | Inpatient (IN) | payer MEDICARE, BC ==
--- NOTE | 2019-01-29 13:26 | RAD ---
RIGHT SHOULDER: 01/29/19 Three views. HISTORY: Shoulder pain. Humeral head rides high on the glenoid and this may represent chronic rotator cuff tear. Mild degener ative change seen with minimal spurring from the humeral head. CT joint appears normally aligned. No fracture or dislocation. IMPRESSION: The humeral head rides high on the glenoid. Consider chronic rotator cuff tear. No acute osseous abno rmality. POS: OFF
[2019-01-29 13:29] LABS: #Eosinphils 0.3 thou/uL (0.0-0.7); #Lymphocytes 1.9 thou/uL (1.20-3.40); #Monocytes 1.5 thou/uL (0.11-0.59); #Neutrophils 8.1 thou/uL (1.40-6.50); %Eosinophils 2.8 % (0.0-10.0); %Monocytes 12.4 % (0.0-10.0); %Neutrophils 68.8 % (42.0-75.0); Hemoglobin 11.7 g/dL (14.0-18.0); Mean Corpuscular HGB CONC 31.8 g/dL (32.0-36.0); Mean Corpuscular Hemoglobin 31.3 pg (27.0-31.0); Mean Corpuscular Volume 98.5 fL (78.0-98.0); Mean Platelet Volume 8.6 fL (7.4-10.4); Platelet Count 385 thou/uL (130-400); RBC Distribution Width 14.9 % (11.5-14.5); Red Blood Cell (RBC) Count 3.75 mill/uL (4.70-6.10); White Blood Cell (WBC) Count 11.8 thou/uL (4.8-10.8)
[2019-01-29 13:37] LABS: INR-International Normal Ratio 1.1; PTT 24.3 SEC (22.9-36.1); Prothrombin Time 14.1 SEC (12.0-14.7)
--- NOTE | 2019-01-29 13:37 | CT ---
CT HEAD WITHOUT CONTRAST: 01/29/19 INDICATIONS: TIA. Comparison made to head CT of 04/16/15. FINDINGS: Mild to moderate cortical volume loss again noted. Ventricles have normal size and position. No evide nce of hemorrhage or mass effect. There is no evidence of cortical infarct. There is a lucency in the left basal ganglia involving the region of the globus pallidus. This could represent acute or subacute lacunar infarct. No other evidence of acute process. IMPRESSION: A focal lucency involving the left basal ganglia. Age indeterminate lacunar infarct may be present. T here are new neurologic deficits, recommend further evaluation with MRI to assess restricted diffusio n at this location. POS: OFF
[2019-01-29] MEDS ORDERED: Aspirin Chewable 81 MG TAB ONE (13:42)
[2019-01-29 13:52] LABS: ALT (SGPT) 32 U/L (8-55); AST (SGOT) 18 U/L (5-34); Albumin 3.4 g/dL (3.4-4.8); Alkaline Phosphatase 83 U/L (40-150); Anion Gap 12 mmol/L (10-20); BUN (Urea Nitrogen) 38 mg/dL (8.4-25.7); Bilirubin, Total 0.6 mg/dL (0.2-1.2); CK (CPK) 15 U/L (30-200); Calc. Creatinine Clearance 0 mL/min (70-130); Calcium 8.8 mg/dL (7.8-10.44); Carbon Dioxide 27 mmol/L (23-31); Chloride 100 mmol/L (98-107); Estimated GFR-MDRD 68; Globulin 1.8 g/dL (2.4-3.5); Glucose 100 mg/dL (83-110); Potassium 4.8 mmol/L (3.5-5.1); Protein, Total 5.2 g/dL (5.8-8.1); Sodium 134 mmol/L (136-145)
--- NOTE | 2019-01-29 15:08 | HP ---
PRIMARY CARE PHYSICIAN: Alin Romano MD REASON FOR ADMISSION: TIA. HISTORY OF PRESENT ILLNESS: An 83-year-old male, who was recently admitted in our hospital on January 10, 2019. During that admission, the patient required three times thoracentesis for pleural effusion. The patient was having chronic issue with shortness of breath. He underwent CABG by Dr. Chente Moss on December 27, 2018. After that surgery, the patient required 2 times thoracentesis for a pleural effusion. The patient was discharged from hospital on January 15, 2019 and he went to [facility], where he stayed until January 25, 2019. On the day of discharge from rehab, the patient had a chest x-ray, which showed stable left-sided pleural and parenchymal lung changes. After discharge from rehab, the patient was dealing with low blood pressure. He was feeling dizziness after walking few steps that was requiring him to stay and rest for a while until his blood pressure allowing him to ambulate. This morning, when he woke up and he was walking towards his restroom with a walker, he felt dizziness and he fell down on the floor. He injured on his right side of the shoulder. In the emergency room, x-ray of the shoulder was unremarkable. Subsequently, the patient's called his primary care physician, Dr. Alin Little and he was graciously agreed to see him. At his office, the patient's blood pressure was low and he was having positive orthostatic vitals. EKG as well as routine blood test was obtained and the patient was released from the clinic. When he went to his home, the patient experienced sudden onset of right upper and lower extremity tingling and numbness sensation. He did not have any speech problem. He was not able to feel on his right side and that is why they got help from neighbor and subsequently, the patient was taken to his room. When they were waiting for few minutes, the patient's symptoms were resolving and the patient's called paramedics and the patient was brought to ER. In the emergency room, the patient had CT brain, which showed focal lucency in the left basal ganglia. It was age indeterminate lacunar infarct. The patient does not have any remembrance of any right-sided tingling, numbness, weakness, or speech problem in recent past. The patient does have TIA in the past, required carotid surgery, but he is not sure about which side he had problems. The patient required left-sided carotid surgery. He did not have any chest pain or palpitation, but he was lately feeling more and more dizziness and weakness. PAST MEDICAL HISTORY: Polymyalgia rheumatica, coronary artery disease required CABG, peripheral vascular disease, pacemaker placement, paroxysmal atrial fibrillation, hypertension, dyslipidemia, history of TIA, and carotid stenosis required carotid surgery. PAST SURGICAL HISTORY: Right radial fracture repair, cholecystectomy, tonsillectomy, lower back fusion, left carotid endarterectomy, and CABG in December 2018. PAST PSYCHIATRIC HISTORY: Reviewed and negative. SOCIAL HISTORY: The patient is , lives at home. No smoking currently. He quit smoking in 1984. No history of alcohol or other illicit drug abuse. ALLERGIES: ROBYN INHIBITOR, BEE VENOM, SULFA DRUGS, AND ADHESIVES. FAMILY HISTORY: No strong family history of premature coronary artery disease, stroke, or cancer, but family member and both parents killed by gun short. REVIEW OF SYSTEMS: CONSTITUTIONAL: Negative for weight loss or gain, ability to conduct usual activities. SKIN: Negative for rash, itching. EYES: Negative for double vision, pain. ENT/MOUTH: Negative for nose bleeding, neck stiffness, pain, tenderness. CARDIOVASCULAR: Negative for palpitations, dyspnea on exertion, orthopnea. RESPIRATORY: Negative for shortness of breath, wheezing, cough, hemoptysis, fever or night sweats. GASTROINTESTINAL: Negative for poor appetite, abdominal pain, heartburn, nausea, vomiting, constipation, or diarrhea. GENITOURINARY: Negative for urgency, frequency, dysuria, nocturia. MUSCULOSKELETAL: Negative for pain, swelling. NEUROLOGIC/PSYCHIATRIC: Negative for anxiety, depression. ALLERGY/IMMUNOLOGIC: Negative for skin rash, bleeding tendency. Please see my HPI for pertinent positives and negatives. All other review of systems reviewed and negative except as mentioned in HPI. CURRENT HOME MEDICATIONS: 1. Proventil HFA 2 puffs q.6 hourly p.r.n. 2. Magnesium oxide 500 mg p.o. at bedtime. 3. Toprol-XL 25 mg daily. 4. Multivitamin one tablet p.o. daily. 5. Pravastatin 80 mg p.o. at bedtime. 6. Prednisone 5 mg daily. 7. Ambien 5 mg at bedtime. 8. Fontana p.r.n. 9. Midodrine 2.5 mg p.o. t.i.d. EMERGENCY ROOM COURSE: The patient is given aspirin. Additional information, the patient reports that he was on Eliquis therapy, but since CABG, the patient is not taking any Eliquis therapy and he has not seen Cardiology. His campus interviews intern is Dr. Gardiner and his cardiovascular surgeon is Dr. Chente Moss. PHYSICAL EXAMINATION: VITAL SIGNS: On arrival, blood pressure 121/66, pulse 70, respiratory rate 18, temperature 97.8, and saturation 95% on room air. Weight 68 kg. GENERAL: The patient is currently alert, awake, appears chronically ill. No obvious acute distress. HEENT: Head, normocephalic and atraumatic. Eyes, pupils are round and reactive to light. Extraocular muscle intact. ENT, oropharynx within normal limits. Moist mucous membranes. No oral lesion. No pharyngeal erythema. No exudate. NECK: Supple. No JVD. No thyromegaly. No carotid bruit. Left-sided carotid endarterectomy scar noted. LUNGS: Clear to auscultation without any rhonchi or rales. CARDIAC: S1 and S2. Appears regular. No significant murmur noted. No gallop. No rub. ABDOMEN: Soft. Bowel sounds present. Nontender and nondistended. No organomegaly. No mass. No suprapubic tenderness. Chest wall sternotomy incision is healed well BACK: Unremarkable. No CVA tenderness. EXTREMITIES: Upper extremities, passive movement of all joints are normal. Lower extremity, no edema. Good distal pulsation. SKIN: No skin rash. HEMATOLOGIC SYSTEM: No lymphadenopathy. PSYCHIATRIC: Normal affect. NEUROLOGIC: Nonfocal examination. ABDOMEN: Soft and benign without any tenderness. No peritoneal sign. No guarding. No rigidity. No rebound. No suprapubic discomfort. SIGNIFICANT LABORATORY DATA: EKG showing nonspecific ST-T changes. CT brain showing left basal ganglia lucency consistent with age indeterminate lacunar infarct. Right shoulder x-ray showing chronic rotator cuff tear changes, but no acute process CBC; WBC 11.8, hemoglobin 11.7, and platelet 385. INR 1.1. BMP and cardiac enzyme test result are pending. ASSESSMENT AND PLAN: 1. Transient ischemic attack. The patient had acute onset of right upper and lower extremity tingling and numbness sensation, which has been resolved in few minutes at home. Currently, the patient's symptoms are completely resolved. He had CT brain, which showing left basal ganglia focal lucency, but the patient is not aware of neurological symptoms on the recent past. At this point, unfortunately because of pacemaker, we cannot obtain MRI brain. We will consult Neurology. The patient will need antiplatelet therapy and that is why we will consult Cardiology as well. We will check lipid profile for stroke workup. We will do echocardiography and carotid Doppler. We will do neuro check every 4 hourly. Meanwhile, continue with aspirin 325 mg p.o. daily and pravastatin 80 mg p.o. at bedtime. 2. Dizziness due to orthostatic hypotension. The patient's blood pressure is intermittently low and gets symptomatic. The patient is on midodrine, which we will continue while in hospital. 3. Coronary artery disease with history of coronary artery bypass grafting. Continue Toprol-XL 25 mg p.o. daily and watch for hypotension. 4. Anemia, macrocytosis. We will start folic acid and vitamin B12 therapy. 5. History of paroxysmal atrial fibrillation, was on chronic anticoagulation therapy, now the patient has transient ischemic attack, recurrent, and that is why we will ask Cardiology to consider starting anticoagulation therapy. 6. History of carotid stenosis, required left carotid endarterectomy and peripheral vascular disease. 7. Dyslipidemia. Check lipid profile and continue pravastatin. 8. Hypertension with history of orthostatic hypotension. Monitor while in the hospital. Adjust medication as needed. 9. Deep venous thrombosis prophylaxis. Lovenox 40 mg subcu daily. 10. Gastrointestinal Prophylaxis. Pepcid 20 mg p.o. b.i.d. 11. Code status he patient is full code the patient's is surrogate decision maker. 12. Disposition and plan, based on clinical course and Cardiology and Neurology recommendation. We are expecting the patient's stay in hospital 24 to 48 hours. Job ID: [id number]
[2019-01-29] MEDS ORDERED: Cepastat Lozenges 1 LOZ PO PRN (16:21)
[2019-01-29] MEDS ORDERED: Loperamide HCl 2 MG CAP PO PRN (16:21)
[2019-01-29] MEDS ORDERED: Acetaminophen 325 MG TAB PO PRN (16:21)
[2019-01-29] MEDS ORDERED: Guaifenesin DM 100-10/5 ML UDCUP PO PRN (16:21)
[2019-01-29] MEDS ORDERED: Ondansetron PF 4 MG/2 ML Vial IVP PRN (16:21)
[2019-01-29] MEDS ORDERED: Ondansetron ODT 4 MG TAB PO PRN (16:21)
[2019-01-29] MEDS ORDERED: Bisacodyl 10 MG SUPP PR PRN (16:21)
[2019-01-29] MEDS ORDERED: Zolpidem Tartrate 5 MG TAB PO PRN (16:21)
[2019-01-29] MEDS ORDERED: Senokot S 8.6-50 MG TAB PO PRN (16:21)
[2019-01-29] MEDS ORDERED: Sodium Chloride 0.65% Nasal 44 ML BOT EA NARE PRN (16:21)
[2019-01-29] MEDS ORDERED: HYDROcodone/Acetaminophen 5/325 mg Tablet PO PRN (16:21)
[2019-01-29] MEDS ORDERED: Calcium Carbonate 500 MG ChewTAB PO PRN (16:21)
--- NOTE | 2019-01-29 17:45 | ULT ---
Ultrasound Doppler duplex carotid: HISTORY: 83-year-old male with syncope TECHNIQUE: Grayscale, color-flow, and spectral analysis, of major arteries of neck. FINDINGS: Minimal/mild plaque at origins of bilateral internal carotids, and scattered small plaque at left com mon carotid. Highest peak systolic velocities in the internal carotid arteries: Right: 55 cm/s. Left: 60 cm/s. ICA/CCA ratios: Right: 1.0 Left: 1.2 Vertebral artery flow antegrade bilaterally. IMPRESSION: 1. Mild atherosclerosis of carotids. 2. No hemodynamically significant stenosis.
[2019-01-29 18:31] VITALS: BMI 20.5
[2019-01-29] MEDS: Famotidine 20 MG TAB PO SCH (20:48)
[2019-01-29] MEDS: Atorvastatin Calcium 20 MG TAB PO SCH (20:48)
[2019-01-29] MEDS ORDERED: Melatonin 3 MG TAB PO PRN (21:31)
[2019-01-29] MEDS ORDERED: Artificial Tears 18 DROP/0.9 ML EA EYE PRN (21:32)
[2019-01-29] MEDS: Midodrine HCl 5 MG TAB PO SCH (22:05)
[2019-01-30 06:05] LABS: Band 8 % (5-11); Hemoglobin 10.4 g/dL (14.0-18.0); Lymphocytes 21 % (21-51); MDiff Complete? YES; Mean Corpuscular Hemoglobin 31.2 pg (27.0-31.0); Mean Corpuscular Volume 97.4 fL (78.0-98.0); Mean Platelet Volume 8.6 fL (7.4-10.4); Metamyelocyte 1 % (0-0); Monocytes 13 % (0-10); Neutrophil 57 % (42-75); Platelet Count 321 thou/uL (130-400); Platelet Morphology Comment Appears Adequate; RBC Distribution Width 14.8 % (11.5-14.5); Red Blood Cell (RBC) Count 3.35 mill/uL (4.70-6.10); White Blood Cell (WBC) Count 9.6 thou/uL (4.8-10.8)
[2019-01-30 06:08] LABS: Anion Gap 10 mmol/L (10-20); BUN (Urea Nitrogen) 27 mg/dL (8.4-25.7); Calc. Creatinine Clearance 62 mL/min (70-130); Carbon Dioxide 25 mmol/L (23-31); Chloride 101 mmol/L (98-107); Cholesterol 101 mg/dl (< 200 Desired); Estimated GFR-MDRD Greater than 90; Glucose 84 mg/dL (83-110); HDL Cholesterol 34 mg/dL (>60 Neg Risk); LDL Cholesterol, Calculated 40 mg/dL; Potassium 3.8 mmol/L (3.5-5.1); Sodium 132 mmol/L (136-145); Triglycerides 135 mg/dL (Less than 150)
[2019-01-30] MEDS: Famotidine 20 MG TAB PO SCH ×2 (08:57→20:11)
[2019-01-30] MEDS: Midodrine HCl 5 MG TAB PO SCH ×3 (08:58→20:11)
[2019-01-30] MEDS ORDERED: Aspirin 325 mg Enteric Coated Tablet PO SCH (09:00)
[2019-01-30] MEDS ORDERED: Enoxaparin Sodium 40 MG/0.4 ML SYRINGE SC SCH (09:00)
--- NOTE | 2019-01-30 11:39 | PRG ---
DATE OF SERVICE: 01/30/2019 SUBJECTIVE: The patient feels well. He has had no further symptoms. He said his right-sided tingling and right lower extremity weakness lasted for total of about 10 to 12 minutes. Otherwise, he has been fairly asymptomatic. He does relate that his symptoms occurred after he had been riding in a car for about 20 minutes and it started as he was getting out of the car to a standing position. The patient also said that he had a similar symptoms about 4 years ago, had a workup at that time that was negative. OBJECTIVE: VITAL SIGNS: Temperature is 98.7, T-max 99.3, pulse 74, respirations 20, O2 saturations 92% to 95% on room air, blood pressure 102/62. However, the one on the bedside monitor shows a systolic of 80s and diastolic in 50s. GENERAL APPEARANCE: Age-appropriate male, in no distress. He is awake and alert. HEART: Regular rate and rhythm without murmurs. LUNGS: Clear bilaterally. ABDOMEN: Soft, nontender, and nondistended. EXTREMITIES: No significant edema. PSYCH: Normal affect and behavior. NEUROLOGIC: He appears to be moving all extremities spontaneously without significant localized deficits. LABORATORY DATA: White count 9.6, hemoglobin 10.4, platelets 321. Sodium 132, BUN 27, creatinine 0.77. Cholesterol 101, LDL 40, HDL 34. IMPRESSION AND PLAN: 1. Right-sided paresthesias concerning for a TIA. My suspicion is this likely was a TIA, but not due to occlusive disease, but more likely related to orthostatic hypotension causing some hypoperfusion. This would certainly fit the scenario, in which the patient was getting out of the car after having being seated for about 20 minutes and the fact that it resolved fairly quickly when he became supine. Thus far, workup is negative other than a left basal ganglia, focal lucency, the age of which does not appear to be acute, but cannot fully be determined. Could not get an MRI because of pacemaker. We will await Neurology input and Cardiology input. Continue with telemetry monitoring. Also, get a printout of his pacemaker. 2. Coronary artery disease, status post recent bypass grafting. He is on a beta-lizbet, which certainly may be challenging in the setting of the hypotension and autonomic dysfunction, but otherwise he appears to be healing well from his recent coronary artery bypass. 3. History of paroxysmal atrial fibrillation. The patient is not on anticoagulation presently and personally of the opinion that he likely did not have a TIA related to atrial fibrillation and would not necessarily want to start anticoagulation now given his high risk of falls. However, the pacemaker interrogation will certainly be helpful in answering that question. 4. Autonomic dysfunction with chronic orthostatic hypotension. Continue with the midodrine. 5. Dyslipidemia. Cholesterol panel looks very good. No change there. 6. History of hypertension, challenging in the setting of the orthostasis. We will not want to pursue that aggressively. ADDENDUM: Pacemaker present. The patient reports that Dr. Gardiner has talked to him about possibly changing to a dual-chamber pacer, which certainly could potentially be helpful in this setting as well. Again, we will await Dr. Gardiner's comments. Job ID: [id number]
[2019-01-30] MEDS: Atorvastatin Calcium 20 MG TAB PO SCH (20:11)
[2019-01-30 20:15] VITALS: BP 119/68; TEMP 98
--- NOTE | 2019-01-30 20:48 | PRG ---
DATE OF SERVICE: 01/30/2019 SUBJECTIVE: Mr. Washington had a recent transient ischemic attack with severe right arm and right leg weakness that fortunately resolved. The patient had to be taken off Eliquis recently for bleeding into the pleural space. At this point, we would recommend going back on the Eliquis as he had almost a very severe stroke. OBJECTIVE: VITAL SIGNS: His blood pressure is still variable, still has orthostatic hypotension, but now it is 125/61 and pulse 70. LUNGS: Clear. CARDIAC: Normal S1. Normal S2. ABDOMEN: Soft and nontender. LABORATORY DATA: On the rhythm, he has AV pacing, except the AV search to try to avoid ventricular pacing, but he has a very long first-degree block. ASSESSMENT: 1. Recent transient ischemic attack. 2. Atrial fibrillation. 3. Recent bleeding to the pleural space. PLAN: 1. Agree with going back on Eliquis and I think risk-benefit ratio favors resuming anticoagulant. 2. Take midodrine 3 times a day. 3. At some point, perhaps, in a month, consideration for stopping the Eliquis for a few days and upgrading the pacemaker to a biventricular device. I think that would help his orthostatic hypotension. He does have some degree of left ventricular dysfunction, especially with ventricular pacing in the right ventricle. Job ID: [id number]
[2019-01-30] MEDS ORDERED: Apixaban 5 MG TAB PO SCH (21:00)
--- NOTE | 2019-02-02 12:21 | EKG ---
Test Reason : STROKE Blood Pressure : / mmHG Vent. Rate : 071 BPM Atrial Rate : 069 BPM P-R Int : 000 ms QRS Dur : 096 ms QT Int : 404 ms P-R-T Axes : 000 029 242 degrees QTc Int : 439 ms Undetermined rhythm Abnormal ECG Confirmed by JOSE CLARK, ISABELLE ([id number]), slot editor BRANDEN YU ([id number]) on 02/02/2019 12:21:11 PM Referred By: Confirmed By:ISABELLE GARCIA MD
== END 2019-01-30 20:14 | disposition home or self-care (01) | DRG 69 ==
LOC: ERS 12:33 → 2SE 13:50
PROVIDERS: ADMIT Internal Medicine; ATTEND Internal Medicine
DX: G45.9 Transient cerebral ischemic attack, unspecified (principal); M35.3 Polymyalgia rheumatica; I95.1 Orthostatic hypotension; D64.9 Anemia, unspecified; F45.8 Other somatoform disorders; I25.10 Atherosclerotic heart disease of native coronary artery without angina pectoris; I73.9 Peripheral vascular disease, unspecified; I48.0 Paroxysmal atrial fibrillation; I10 Essential (primary) hypertension; E78.5 Hyperlipidemia, unspecified; Z95.1 Presence of aortocoronary bypass graft; Z95.0 Presence of cardiac pacemaker; Z90.49 Acquired absence of other specified parts of digestive tract; Z88.8 Allergy status to other drugs, medicaments and biological substances; Z88.2 Allergy status to sulfonamides; Z79.899 Other long term (current) drug therapy
CPT/HCPCS: 36415; 70450; 80048; 80053; 80061; 82550; 84484; 85014; 85018; 85025; 85610; 85730; 93005; 93306; 93880; J1650

== ENCOUNTER 2019-02-08 09:35 | Outpatient (CLI) | payer MEDICARE, BC ==
--- NOTE | 2019-02-08 12:11 | CT ---
CT BRAIN WITH AND WITHOUT IV CONTRAST: Date 02/08/19 HISTORY: TIA. FINDINGS: Comparison made with noncontrasted study of 01/29/19. 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 No evidence of acute infarct, hemorrhage, mass, midline shift, or abnormal extra-axial fluid collections are seen. No abn ormal postcontrast enhancement is noted. The bony calvarium is intact. The visualized paranasal sinus es and mastoid air cells are well aerated. IMPRESSION: No CT evidence of acute intracranial process or mass. POS: [facility]
== END 2019-02-08 09:36 | disposition home or self-care (01) ==
LOC: SCSCT 09:35
PROVIDERS: ATTEND Family Medicine
DX: G45.9 Transient cerebral ischemic attack, unspecified (principal)
CPT/HCPCS: 70470

== ENCOUNTER 2019-03-21 06:34 | Outpatient (CLI) | payer MEDICARE, BC ==
[2019-03-21 13:42] LABS: Hemoglobin 13.3 g/dL (14.0-18.0); Mean Corpuscular HGB CONC 32.6 g/dL (32.0-36.0); Mean Corpuscular Hemoglobin 30.7 pg (27.0-31.0); Mean Corpuscular Volume 94.4 fL (78.0-98.0); Mean Platelet Volume 10.7 fL (7.4-10.4); Platelet Count 224 thou/uL (130-400); RBC Distribution Width 14.9 % (11.5-14.5); Red Blood Cell (RBC) Count 4.32 mill/uL (4.70-6.10); White Blood Cell (WBC) Count 9.6 thou/uL (4.8-10.8)
[2019-03-21 13:52] LABS: INR-International Normal Ratio 1.2; Prothrombin Time 15.3 SEC (12.0-14.7)
[2019-03-21 14:06] LABS: Anion Gap 15 mmol/L (10-20); BUN (Urea Nitrogen) 38 mg/dL (8.4-25.7); Calc. Creatinine Clearance 0 mL/min (70-130); Calcium 9.1 mg/dL (7.8-10.44); Carbon Dioxide 23 mmol/L (23-31); Chloride 100 mmol/L (98-107); Estimated GFR-MDRD 50; Glucose 100 mg/dL (83-110); Potassium 4.9 mmol/L (3.5-5.1); Sodium 133 mmol/L (136-145)
--- NOTE | 2019-03-21 16:53 | EKG ---
Test Reason : Blood Pressure : / mmHG Vent. Rate : 079 BPM Atrial Rate : 079 BPM P-R Int : 160 ms QRS Dur : 188 ms QT Int : 458 ms P-R-T Axes : 119 270 093 degrees QTc Int : 525 ms AV sequential or dual chamber electronic pacemaker When compared with ECG of 29-JAN-2019 12:47, Confirmed by CINTIA PALOMARES ([id number]) on 03/21/2019 4:53:25 PM Referred By: DAVID Confirmed By:CINTIA PALOMARES
== END 2019-03-21 06:35 | disposition home or self-care (01) ==
LOC: LABBT 06:34
PROVIDERS: ATTEND Internal Medicine Cardiovascular Disease
DX: Z01.818 Encounter for other preprocedural examination (principal); I44.30 Unspecified atrioventricular block
CPT/HCPCS: 80048; 85027; 85610; 85730; 93005; 93010

== ENCOUNTER 2019-03-27 07:15 | Day surgery (SDC) | payer MEDICARE, BC ==
[2019-03-21 11:49] VITALS: BMI 21.6
[2019-03-27] MEDS ORDERED: Lidocaine 1% (PF) 30 ML VIAL ONE ×2 (07:47→08:37)
[2019-03-27] MEDS ORDERED: Ketamine 50 MG/ML (10ML VIAL) ONE (08:02)
[2019-03-27] MEDS ORDERED: Propofol 500 MG/50 ML VIAL ONE (08:24)
[2019-03-27] MEDS ORDERED: PHENYLEPHRINE-NS 100 MCG/ML 10 ML SYRINGE ONE (10:22)
[2019-03-27] MEDS ORDERED: PROPOFOL 200 MG/20 ML VIAL ONE (10:22)
[2019-03-27] MEDS ORDERED: ePHEDrine/0.9% NaCl/PF SYRINGE 50 mg/10 ml ONE (10:22)
[2019-03-27] MEDS ORDERED: Succinylcholine Chloride 20 MG/ML 10 ml SYRINGE FS ONE (10:22)
[2019-03-27] MEDS ORDERED: Fentanyl 100 MCG/2 ML VIAL ONE (10:53)
[2019-03-27] MEDS ORDERED: Midazolam HCl 2 mg/2 ml Vial ONE (11:05)
--- NOTE | 2019-03-27 11:18 | RAD ---
XR Chest 1 View Portable History: Pacemaker generator change Comparison: Radiograph February 04, 2019 Findings: Pacemaker leads are similar. New generator is present. No pneumothorax. No acute osseous ab normality. Impression: Uncomplicated postprocedural findings.
--- NOTE | 2019-03-28 07:11 | EKG ---
Test Reason : POST Blood Pressure : / mmHG Vent. Rate : 070 BPM Atrial Rate : 070 BPM P-R Int : 000 ms QRS Dur : 134 ms QT Int : 540 ms P-R-T Axes : 000 042 233 degrees QTc Int : 583 ms AV sequential or dual chamber electronic pacemaker marked ST changes, cannot r/o acute injury Confirmed by DR. Gordon GROSSMAN ([id number]) on 03/28/2019 7:11:39 AM Referred By: DAVID Confirmed By:DR. Gordon GROSSMAN
== END 2019-03-27 14:35 | disposition home or self-care (01) ==
LOC: CCL 07:15
PROVIDERS: ATTEND Internal Medicine Cardiovascular Disease
PROC: 0JH606Z Insertion of Pacemaker, Dual Chamber into Chest Subcutaneous Tissue and Fascia, Open Approach (ICD-10-PCS; principal; 2019-03-27)
PROC: 02HK3JZ Insertion of Pacemaker Lead into Right Ventricle, Percutaneous Approach (ICD-10-PCS; 2019-03-27)
PROC: 0JPT0PZ Removal of Cardiac Rhythm Related Device from Trunk Subcutaneous Tissue and Fascia, Open Approach (ICD-10-PCS; 2019-03-27)
DX: I44.1 Atrioventricular block, second degree (principal); I48.0 Paroxysmal atrial fibrillation; I48.4 Atypical atrial flutter; I10 Essential (primary) hypertension; E78.5 Hyperlipidemia, unspecified; I25.10 Atherosclerotic heart disease of native coronary artery without angina pectoris; Z79.01 Long term (current) use of anticoagulants; Z79.52 Long term (current) use of systemic steroids; Z79.899 Other long term (current) drug therapy; Z88.2 Allergy status to sulfonamides; Z88.8 Allergy status to other drugs, medicaments and biological substances; Z91.048 Other nonmedicinal substance allergy status; Z91.030 Bee allergy status; Z95.1 Presence of aortocoronary bypass graft; Z98.1 Arthrodesis status
CPT/HCPCS: 33224; 71045; 76942; 93005; 93010; 93613; C1769; C2630; J0690; J1644; J2001; J2250; J2704; J3010; J3490

== ENCOUNTER 2019-07-18 15:09 | Outpatient (CLI) | payer MEDICARE, BC ==
--- NOTE | 2019-07-18 15:28 | RAD ---
EXAM: Two views chest PROVIDED CLINICAL HISTORY: Cough COMPARISON: 03/27/2019 FINDINGS: Cardiac and mediastinal silhouette appears within normal limits. Lungs appear free of significant opa city. No pleural fluid or pneumothorax apparent. Median sternotomy changes and left subclavian cardiac pacing device are redemonstrated. IMPRESSION: No evidence for an acute cardiopulmonary process.
== END 2019-07-18 15:10 | disposition home or self-care (01) ==
LOC: SCSRAD 15:09
PROVIDERS: ATTEND Family Medicine
DX: R06.02 Shortness of breath (principal); Z87.09 Personal history of other diseases of the respiratory system
CPT/HCPCS: 71046

== ENCOUNTER 2020-11-06 09:44 | Outpatient (CLI) | payer MEDICARE, BC ==
[2020-11-06 11:43] LABS: Band 1 % (5-11); Eosinophils 4 % (0-10); Hemoglobin 12.9 g/dL (14.0-18.0); Large Platelets SLIGHT; Lymphocytes 24 % (21-51); MDiff Complete? YES; Macrocytosis SLIGHT = 6-15 cells (100X) (0-5/hpf); Mean Corpuscular HGB CONC 32.5 g/dL (32.0-36.0); Mean Corpuscular Hemoglobin 32.4 pg (27.0-31.0); Mean Corpuscular Volume 99.9 fL (78.0-98.0); Mean Platelet Volume 11.9 fL (7.4-10.4); Monocytes 17 % (0-10); Neutrophil 54 % (42-75); Platelet Count 159 thou/uL (130-400); Platelet Morphology Comment Appears Adequate; RBC Distribution Width 11.6 % (11.5-14.5); Red Blood Cell (RBC) Count 3.99 mill/uL (4.70-6.10); White Blood Cell (WBC) Count 7.4 thou/uL (4.8-10.8)
[2020-11-06 12:14] LABS: Ferritin 214.95 ng/mL (22-322); Thyroid Stimulating Hormone 1.3285 uIU/mL (0.35-4.94)
== END 2020-11-06 09:45 | disposition home or self-care (01) ==
LOC: SCSRAD 09:44
PROVIDERS: ATTEND Family Medicine
DX: J45.41 Moderate persistent asthma with (acute) exacerbation (principal); I50.22 Chronic systolic (congestive) heart failure; I25.10 Atherosclerotic heart disease of native coronary artery without angina pectoris
CPT/HCPCS: 36415; 71046; 82728; 83880; 84443; 85025

== ENCOUNTER 2022-04-20 12:47 | Outpatient (CLI) | payer MEDICARE, BC ==
[2022-04-20 14:55] LABS: Hemoglobin 12.9 g/dL (13.5-17.5); Mean Corpuscular HGB CONC 32.8 g/dL (32.0-36.0); Mean Corpuscular Hemoglobin 30.7 pg (27.0-33.0); Mean Corpuscular Volume 93.6 fl (81.2-95.1); Mean Platelet Volume 13.4 fl (7.4-10.4); Platelet Count 231 10x3/uL (150-450)
[2022-04-20 15:12] LABS: PTT 25.4 sec (22.0-33.0); Prothrombin Time 11.3 sec (9.5-12.1)
[2022-04-20 15:25] LABS: ALT (SGPT) 136 U/L (8-55); AST (SGOT) 61 U/L (5-34); Albumin 3.8 g/dL (3.4-4.8); Alkaline Phosphatase 95 U/L (40-110); Anion Gap 15 mmol/L (10-20); BUN (Urea Nitrogen) 37 mg/dL (8.4-25.7); Bilirubin, Direct 0.3 mg/dL (0.1-0.3); Bilirubin, Total 0.7 mg/dL (0.2-1.2); Calc. Creatinine Clearance 0 mL/min (70-130); Calcium 8.6 mg/dL (7.8-10.44); Carbon Dioxide 20 mmol/L (23-31); Chloride 107 mmol/L (98-107); Estimated GFR 40; Glucose 112 mg/dL (83-110); Potassium 4.8 mmol/L (3.5-5.1); Protein, Total 6.1 g/dL (5.8-8.1); Sodium 137 mmol/L (136-145)
== END 2022-04-20 12:48 | disposition home or self-care (01) ==
LOC: LABBT 12:47
PROVIDERS: ATTEND Internal Medicine Cardiovascular Disease
DX: Z01.812 Encounter for preprocedural laboratory examination (principal); I48.19 Other persistent atrial fibrillation
CPT/HCPCS: 80048; 80076; 85027; 85610; 85730

== ENCOUNTER 2022-04-21 06:09 | Day surgery (SDC) | payer MEDICARE, BC ==
[2022-04-20 16:25] VITALS: BMI 21.1
[2022-04-21] MEDS ORDERED: PROPOFOL 20 ML ONE (06:44)
[2022-04-21] MEDS ORDERED: Glycopyrrolate 0.2 MG/ML 5 ML SYRINGE ONE (06:44)
== END 2022-04-21 09:40 | disposition home or self-care (01) ==
LOC: SDC 06:09
PROVIDERS: ATTEND Internal Medicine Cardiovascular Disease
PROC: 5A2204Z Restoration of Cardiac Rhythm, Single (ICD-10-PCS; principal; 2022-04-21)
DX: I48.19 Other persistent atrial fibrillation (principal); I48.4 Atypical atrial flutter; I25.10 Atherosclerotic heart disease of native coronary artery without angina pectoris; I10 Essential (primary) hypertension; E78.5 Hyperlipidemia, unspecified; I44.1 Atrioventricular block, second degree; Z87.891 Personal history of nicotine dependence; Z79.01 Long term (current) use of anticoagulants; Z79.899 Other long term (current) drug therapy; Z88.2 Allergy status to sulfonamides; Z88.8 Allergy status to other drugs, medicaments and biological substances; Z91.030 Bee allergy status; Z91.048 Other nonmedicinal substance allergy status; Z95.0 Presence of cardiac pacemaker; Z95.1 Presence of aortocoronary bypass graft
CPT/HCPCS: 92960; 93005; 93010; J2704

== ENCOUNTER 2022-07-11 10:15 | Inpatient (IN) | payer MEDICARE, BC ==
[2022-07-11 11:24] LABS: Bilirubin Neg (Negative); Blood, Urine Negative (Negative); Clarity Clear (Clear); Glucose, Urine (Dipstick) 250 mg/dL (Negative); Ketone, Urine Negative (Negative); Leukocyte Negative (Negative); Nitrite Negative (Negative); Protein, Urine (Dipstick) Negative (Neg-Trace); Urobilinogen Normal mg/dL (Less than 2); pH, Urine 6.5 (5.0-9.0)
[2022-07-11 11:25] LABS: Hemoglobin 12.1 g/dL (13.5-17.5); Mean Corpuscular HGB CONC 31.3 g/dL (32.0-36.0); Mean Corpuscular Hemoglobin 29.4 pg (27.0-33.0); Mean Corpuscular Volume 93.7 fl (81.2-95.1); Mean Platelet Volume 12.1 fl (7.4-10.4); Platelet Count 294 10x3/uL (150-450); RBC Distribution Width 16.5 % (11.5-14.5); Red Blood Cell (RBC) Count 4.12 10x6/uL (4.32-5.72); White Blood Cell (WBC) Count 9.6 10x3/uL (3.5-10.5)
[2022-07-11 11:55] LABS: PTT 27.1 sec (22.0-33.0); Prothrombin Time 11.1 sec (9.5-12.1)
[2022-07-11 12:05] LABS: ALT (SGPT) 34 U/L (8-55); AST (SGOT) 19 U/L (5-34); Albumin 3.9 g/dL (3.4-4.8); Alkaline Phosphatase 91 U/L (40-110); Anion Gap 16 mmol/L (10-20); BUN (Urea Nitrogen) 31 mg/dL (8.4-25.7); Bilirubin, Total 0.5 mg/dL (0.2-1.2); Calc. Creatinine Clearance 0 mL/min (70-130); Carbon Dioxide 22 mmol/L (23-31); Chloride 104 mmol/L (98-107); Estimated GFR 60; Globulin 2.5 g/dL (2.4-3.5); Glucose 79 mg/dL (83-110); Potassium 4.8 mmol/L (3.5-5.1); Protein, Total 6.4 g/dL (5.8-8.1); Sodium 137 mmol/L (136-145)
[2022-07-12 12:59] VITALS: BMI 20.5
[2022-07-13] MEDS ORDERED: Iopamidol 370 76% 100 ML VIAL ONE (11:42)
[2022-07-13] MEDS ORDERED: CEFAZOLIN 1 GM VIAL ONE (12:50)
[2022-07-13] MEDS ORDERED: Heparin 10,000 UNITS/ 10 ML VIAL ONE (12:50)
[2022-07-13] MEDS ORDERED: Protamine Sulfate 50 MG/5 ML VIAL ONE (12:50)
[2022-07-13] MEDS ORDERED: Ondansetron PF 4 MG/2 ML Vial ONE (13:42)
[2022-07-13] MEDS ORDERED: Rocuronium Bromide 10 MG/ML (10ML VIAL) ONE (13:42)
[2022-07-13] MEDS ORDERED: Lidocaine 1% PF 5 ML VIAL ONE (13:42)
[2022-07-13] MEDS ORDERED: PROPOFOL 200 MG/20 ML VIAL ONE (13:42)
[2022-07-13] MEDS ORDERED: Dexamethasone 20 MG/5 ML VIAL ONE (13:42)
[2022-07-13] MEDS ORDERED: FENTANYL 50 MCG/ML 1 ML VIAL ONE (13:44)
[2022-07-13] MEDS ORDERED: SUGAMMADEX SODIUM 200 MG/2 ML VIAL ONE (13:44)
[2022-07-13] MEDS ORDERED: Fentanyl 100 MCG/2 ML VIAL ONE (16:51)
== END 2022-07-13 18:35 | disposition home or self-care (01) | DRG 274 ==
LOC: SURG A 07-13 10:00
PROVIDERS: ADMIT Internal Medicine Cardiovascular Disease; ATTEND Internal Medicine Cardiovascular Disease
PROC: 02L73DK Occlusion of Left Atrial Appendage with Intraluminal Device, Percutaneous Approach (ICD-10-PCS; principal; 2022-07-13)
PROC: B24BZZ4 Ultrasonography of Heart with Aorta, Transesophageal (ICD-10-PCS; 2022-07-13)
DX: I48.19 Other persistent atrial fibrillation (principal); Z00.6 Encounter for examination for normal comparison and control in clinical research program; I25.10 Atherosclerotic heart disease of native coronary artery without angina pectoris; I10 Essential (primary) hypertension; E78.5 Hyperlipidemia, unspecified; I08.3 Combined rheumatic disorders of mitral, aortic and tricuspid valves; I48.4 Atypical atrial flutter; Z79.01 Long term (current) use of anticoagulants; Z95.1 Presence of aortocoronary bypass graft; Z79.899 Other long term (current) drug therapy; Z95.0 Presence of cardiac pacemaker; Z87.891 Personal history of nicotine dependence; Z86.79 Personal history of other diseases of the circulatory system; Z91.030 Bee allergy status; Z88.2 Allergy status to sulfonamides; Z91.09 Other allergy status, other than to drugs and biological substances; Z88.8 Allergy status to other drugs, medicaments and biological substances; Z91.81 History of falling
CPT/HCPCS: 33340; 80053; 81003; 85027; 85347; 85610; 85730; 86850; 86900; 86901; 93005; 93306; 93312; C1759; C1760; C1894; J0690; J1100; J1644; J2405; J2704; J2720; J3010; Q9967

== ENCOUNTER 2022-07-11 10:26 | Outpatient (CLI) | payer MEDICARE, BC | END 2022-07-11 10:27 | disposition home or self-care (01) | LOC: LABBT 10:26 | PROVIDERS: ATTEND Internal Medicine Cardiovascular Disease | DX: Z01.810 Encounter for preprocedural cardiovascular examination (principal); I48.0 Paroxysmal atrial fibrillation | CPT/HCPCS: 80053; 81003; 85027; 85610; 85730; 86850; 86900; 86901; 93005; 93010 ==

== ENCOUNTER 2022-08-25 16:38 | Outpatient (CLI) | payer MEDICARE, BC | END 2022-08-25 16:39 | disposition home or self-care (01) | LOC: RAD 16:38 | PROVIDERS: ATTEND Nurse Practitioner Family | DX: I51.9 Heart disease, unspecified (principal); J90 Pleural effusion, not elsewhere classified | CPT/HCPCS: 71046 ==